=== PATIENT | male | born 1980 | race Hispanic/Latino ===

== ENCOUNTER 2024-05-16 10:24 | Inpatient (IN) | payer BC ==
[2024-05-16] MEDS ORDERED: Ringers Lactate 1,000 ML IV ONE ×2 (10:38→13:09)
[2024-05-16] MEDS ORDERED: CEFAZOLIN SODIUM 2 GM/VIAL ONE (10:38)
[2024-05-16] MEDS ORDERED: MIDAZOLAM HCL 2 MG/2 ML INJ ONE (12:08)
[2024-05-16] MEDS ORDERED: LIDOCAINE 2% MPF 5 ML VIAL ONE (12:08)
[2024-05-16] MEDS ORDERED: ROCURONIUM 50 MG/5 ML VIAL IV ONE ×3 (12:08→15:40)
[2024-05-16] MEDS ORDERED: ONDANSETRON 4 MG/2 ML VIAL ONE (12:08)
[2024-05-16] MEDS ORDERED: FENTANYL CITR 100 MCG/2 ML ONE (12:08)
[2024-05-16] MEDS ORDERED: propofoL 200 MG/20 ML VIAL IV ONE (12:08)
[2024-05-16] MEDS ORDERED: HYDROMORPHONE HCL 1 MG/ML INJ ONE (12:12)
[2024-05-16] MEDS ORDERED: SUGAMMADEX SODIUM 200 MG/2 ML VIAL IV ONE (12:12)
[2024-05-16] MEDS ORDERED: LIDOCAINE HCL/EPINEPHRINE 20 ML MDV ONE (12:14)
[2024-05-16] MEDS ORDERED: dexAMETHasone 10 MG/ML VIAL ONE (13:14)
[2024-05-16] MEDS ORDERED: KETOROLAC 30 MG/ML INJ ONE (14:09)
[2024-05-16] MEDS ORDERED: KETAMINE HCL IN 0.9 % NACL 50 MG/5 ML SYRINGE IV ONE (14:10)
[2024-05-16] MEDS ORDERED: EPHEDRINE SULF 50 MG/ML VIAL ONE (14:46)
--- NOTE | 2024-05-16 16:15 | P.OP ---
Preoperative diagnosis: Recurrent Ventral Incisional Hernia Postoperative diagnosis: Recurrent Ventral Incisional Hernia Primary procedure: Diagnostic Laparoscopy converted to Open Laparotomy Secondary procedure: Small Bowel Resection Other procedure(s): Removal of Foreign Body - Mesh Anesthesia: GETA + Local Estimated blood loss: <100cc Specimen: Small Bowel, Mesh Findings: Small bowel integrated to mesh, mesh malpositioned Complications: None Implants: Seprafilm Transferred to: Recovery Room Condition: Good
[2024-05-16] MEDS: HYDROMORPHONE HCL 1 MG/ML INJ ONE ×3 (16:54→17:11)
[2024-05-16] MEDS: Ringers Lactate 1,000 ML IV ONE (17:00)
[2024-05-16] MEDS: LABETALOL 20 MG/4ML SYRINGE IV ONE (17:11)
--- NOTE | 2024-05-16 17:16 | P.CNS ---
Date of Consult: 05/16/24 Reason for Consult: Hospitalist coverage Requesting Physician: Lucas Gonzalez Chief Complaint: s/p umbilical hernia repair revision today History of Present Illness: Mr. Thompson is a 43-year-old male with a past medical history of obesity and obstructive sleep apnea who had a previous umbilical hernia repair in [place], [place] with recurrent ventral incisional hernias. He underwent open laparotomy with small bowel resection and removal of mesh per Dr. Gonzalez today. The hospitalist team will help keep an eye on patient's H&H and expect discharge in the a.m. - Past Medical/Surgical History -: Obesity -: Umbilical hernia -: Umbilical hernia repair with mesh Psychosocial/ Personal History: Lives at home with his - Social History Place of Residence: Home <Korin Soler - Last Filed: 05/16/24 17:46> - Family History Mother Medical History: Diabetes Brother Medical History: Diabetes <Stan Disla - Last Filed: 05/17/24 10:23> Allergies metronidazole [From Flagyl] Allergy (Verified 05/15/24 10:59) Rash nabumetone [From Relafen] Allergy (Verified 05/15/24 10:59) Rash Home Medications: NK [No Home Meds] 05/17/24 Review of Systems is unable to be obtained (Patient and day surgery recovery area. Continued sedation, will obtain more history when patient is more alert) <Korin Soler - Last Filed: 05/16/24 17:46> Physical Examination Temp Pulse Resp BP Pulse Ox 98.8 F 116 H 18 139/93 H 05/16/24 16:51 05/16/24 16:51 05/16/24 16:51 05/16/24 16:51 General: Obese, Other (Sedated) HEENT: Atraumatic, Normocephalic Neck: Supple Respiratory: Normal air movement Cardiovascular: Regular rate/rhythm, Normal S1 S2, Other (Mild tachycardia) Capillary refill: <2 Seconds Gastrointestinal: Other (Surgical dressings clean dry and intact abdominal binder in place), Tenderness Musculoskeletal: No clubbing Integumentary: No rashes Neurological: Normal tone, Normal affect Lymphatics: No axilla or inguinal lymphadenopathy External genitalia: Deferred Rectal: Deferred <Korin Soler - Last Filed: 05/16/24 17:46> Temp Pulse Resp BP Pulse Ox 97.1 F 90 18 125/75 96 05/17/24 08:00 05/17/24 08:00 05/17/24 08:32 05/17/24 08:00 05/17/24 08:32 Laboratory Data (last 24 hrs) 05/17/24 05/17/24 05/17/24 08:40 05:02 05:02 WBC 14.50 H Hgb 13.4 L 13.4 L Hct 40.4 Plt Count 293 Sodium 139 Potassium 4.1 BUN 12 Creatinine 0.85 Glucose 157 H Phosphorus 2.8 Magnesium 1.7 05/17/24 05/17/24 05/16/24 04:47 02:44 23:02 WBC Hgb Cancelled 13.3 L 14.1 Hct Plt Count Sodium Potassium BUN Creatinine Glucose Phosphorus Magnesium 05/16/24 16:47 WBC Hgb Cancelled Hct Plt Count Sodium Potassium BUN Creatinine Glucose Phosphorus Magnesium <Stan Disla - Last Filed: 05/17/24 10:23> Conclusions/Impression: Open laparotomy for ventral hernia repair and mesh removal Pain control IVF Serial H&H Monitor and replete electrolytes Monitor vital signs I&O Incentive spirometer Cough deep breathe every 2h N.p.o. Teds <Korin Soler - Last Filed: 05/16/24 17:46> Conclusions/Impression: Pt seen and examined. I agree with the note by the RECONCILIATION MACHINE OPERATOR. Pt is a 43 yo male with past medical history of morbid obesity and obstructive sleep apnea who was admitted for observation s/p open laparatomy. Dr. Gonzalez did open laparatomy with small bowel resection and removal of mesh. of note pt had umbilical hernia repair a while ago with recurrent ventral incisional hernia. On admission, lab studies show hgb i wbc 14.2, Hgb 13.2, K 4.1, Cr 0.85. At bedside, pt is in NAD. A/P: S/p Open laparatomy with small bowel resection and removal of mesh: Pt is doing well post-op. Will continue prn pain med. Pt denies any bowel movement. Will start CLD. Hgb is 13.4. Will monitor H/H. ZACK: Continue CPAP at night Morbid obesity: Pt was advised to lose weight. DVT ppx: SCD Code: full <Stan Disla - Last Filed: 05/17/24 10:23>
[2024-05-16] MEDS: Ringers Lactate 1,000 ML IV SCH (18:00)
[2024-05-16] MEDS: FENTANYL CITR 100 MCG/2 ML ONE (18:11)
[2024-05-16] MEDS: ONDANSETRON 4 MG/2 ML VIAL IV PRN (22:23)
[2024-05-16] MEDS: FENTANYL CITR 100 MCG/2 ML IV ONE (22:24)
[2024-05-16] MEDS: ERTAPENEM NA 1 GM in NA CHLORIDE 0.9% 100 ML IVPB ONE (22:32)
[2024-05-16] MEDS: D5.45NS W/KCL 20MEQ 1,000 ML IV SCH (22:32)
[2024-05-16 22:43] VITALS: BMI 43.5
--- NOTE | 2024-05-16 22:54 | OP ---
Date of Procedure: 05/16/2024 Surgeon: Annmarie Gonzalez MD, Preoperative Diagnosis: Recurrent ventral incisional hernias. Postoperative Diagnosis: Recurrent ventral incisional hernias. Procedures Performed: 1.Diagnostic laparoscopy converted to open exploratory laparotomy. 2.Small bowel resection. 3.Removal of mesh foreign body. 4.Laparoscopic adhesiolysis for greater than 2 hours and open adhesiolysis for greater than 1 hour. Anesthesia: General endotracheal plus local, 1% lidocaine with epinephrine. Estimated Blood Loss: 100 cc. Specimens: Small bowel and mesh from previous surgery. Findings: 1.Small bowel had significant adhesions and integration into previously placed mesh near the midline periumbilical region where a previous hernia was appreciated. 2.Mesh was malpositioned, was rolling of the edge, and small bowel adhesions to both aspects of this with multiple loops of small bowel involved. Complications: None. Implants: Seprafilm 2 sheets. Disposition: The patient was transferred to recovery room in good condition. Procedure In Detail: After informed consent was obtained, the patient was brought to the operating r oom, prepped and draped in the usual sterile fashion. After adequate anesthesia was achieved, I made an incision of the left upper quadrant after appropriately anesthetizing the skin. A 5 mm surgical optical trocar was introduced in the abdomen without incident or complication. Insufflation was obta ined to 15 mmHg at this time. There was no injury to vital structures upon entry into the abdomen. Additional trocar was placed in the left lower abdomen. This was similarly anesthetized and sharply incised. A 5 mm trocar was placed under direct visualization without incident or complication. Farshad tional trocar was placed in the left mid abdomen. This was similarly anesthetized, sharply incised. A 5 mm trocar was placed under direct vision without incident or complication. A total of 3 trocars were placed, 12 mm in the left lower quadrant and two 5 mm, 1 in the left mid abdomen and 1 in the l eft upper abdomen. At this point, I proceeded to perform an extensive laparoscopic adhesiolysis for approximately 2 hours attempting to remove small bowel adhesions to the previously placed mesh at the umbilicus. After the adhesiolysis was attempted, it was noted that the small bowel integrated and n ot able to be from the previously placed mesh and as such, I planned a midline mini-laparot lovely incision in the supraumbilical position in a safe zone which was identified after adhesiolysis wa s performed. At this point, I left pneumoperitoneum in place and removed the trocars. I then made a n incision using a 10 blade down to subcutaneous tissues. Electrocautery was used to dissect down to subcutaneous fat ultimately entering the peritoneum sharply with Metzenbaum scissors. I opened the abdomen following down to the previously placed mesh where the integrated small bowel to the mesh was appreciated. I performed extensive adhesiolysis and once again, the small bowel could not be separa annmarie from the mesh and as such, the mesh was removed in its entirety with the segment of small bowel. I secured the small bowel with proximal and distal control to minimize spillage prior to making the resection at this point using a silk suture. I brought the small bowel out and performed a small bow el resection, so I aligned 2 segments of the bowel in a proximal and distal aspect after running the small bowel from the ligament of Treitz to the ileocecal valve and only finding 1 area of significant concern requiring bowel resection. I made a mesenteric window with electrocautery. I then fired th e JOSEPH 60 blue load across the proximal and distal small bowel segments and used the LigaSure to take down the mesentery at this point. I then sent this off for pathologic examination as a small bowel s pecimen. I then aligned the small bowel in a [id number] fashion, secured them using 3-0 silk sutur es in the proximal and distal aspect of the small bowel. I then made a sterile field and performed e nterotomies using electrocautery. I then placed a JOSEPH 60 blue load through the small bowel on the pr oximal and distal limbs and fired the stapler with good approximation of the tissues creating a nice open common channel without bleeding. At this point, I closed the common defect using a Zebulon 3-0 PDS running suture without incident or complication. The common channel was open at this point. I t hen closed the enterotomy with a second layer of Lembert 3-0 silk sutures with good approximation of tissues. I then closed the common mesenteric defect using a 3-0 interrupted Vicryl suture. Everythi ng was changed at this point. The abdomen was copiously irrigated and suctioned out to ami timmons. No additional hemostasis was required at this point. I then ran the small bowel 1 last time. Th ere were only 2 areas of concern further, which had small less than 1 mm areas of inflammatory change consistent with possible serosal injury. As such, I placed a 3-0 Vicryl interrupted suture to reinf orce these 2 spots on the proximal and distal bowel and ran the small bowel once again. No additiona l findings were appreciated at this point. The small bowel was submerged and irrigated once again. No additional hemostasis required. The irrigant was suctioned out at this point. I then placed a pi cassidy of Seprafilm into the abdominal compartment and proceeded to close the 12 mm trocar site using an interrupted #1 Vicryl suture with good approximation of tissues. I then closed the midline incision using a #1 looped PDS in a running fashion and removed the abdominal fissure at the end of the proce dure. I then irrigated the skin and closed with interrupted lito. All skin incisions were then c losed with interrupted lito and a sterile dressing was placed over top. The patient tolerated pro cedure well without incident or complication and transferred back in good condition. All counts were correct at the end of the case. YONI/JEAN MARIE Voice ID: [id number] Report ID: [id number]
[2024-05-16] MEDS: HYDROCODONE/APAP 7.5/325 MG TAB PO PRN (23:13)
[2024-05-17] MEDS: FENTANYL CITR 100 MCG/2 ML IV PRN (02:12)
[2024-05-17 05:27] LABS: Absolute Lymphocytes (CBC) 1.6 K/uL (0.7-4.9); Absolute Monocytes 0.9 K/uL (0.1-1.3); Absolute Neutrophil 11.9 K/uL (1.8-8.0); Basophils % 0.3 % (0-1.3); Hematocrit 40.4 % (39.6-49.0); Hemoglobin 13.4 g/dL (13.6-17.9); Lymphocytes % 11.3 % (15.3-44.8); MCHC 33.2 g/dL (32.0-36.0); MCV 87.3 fL (80-100); MPV 7.6 fL (7.6-11.3); Monocytes % 6.2 % (3.3-12.3); Neutrophils % 82.2 % (41.7-73.7); Nucleated Red Blood Cells % 0.1 % (0-0); Platelets 293 thou/uL (152-406); RBC Red Blood Cell Count 4.63 M/uL (4.33-5.43); Red Cell Distribution Width 14.9 % (12.1-15.2)
[2024-05-17 05:37] LABS: Anion Gap 9.1 mEq/L (5.0-15.0); Magnesium 1.7 mg/dL (1.6-2.4); Phosphorus 2.8 mg/dL (2.5-4.9); Potassium 4.1 mEq/L (3.5-5.1)
[2024-05-17] MEDS: MAGNESIUM SULFATE 1 gm IVPB 1 GM/100 ML BAG IV ONE (08:26)
--- NOTE | 2024-05-17 12:16 | P.PN ---
Subjective Date of Service: 05/17/24 Chief Complaint: s/p umbilical hernia repair revision today Subjective: Improving (Pt will be admitted to hospitalist service. Will consult Dr. Gonzalez) <Korin Soler - Last Filed: 05/17/24 12:16> Date of Service: 05/17/24 <Stan Disla Jad - Last Filed: 05/17/24 17:57> Review of Systems 10-point ROS is otherwise unremarkable Gastrointestinal: Other (using I-S, Abd binder in place) <Korin Soler - Last Filed: 05/17/24 12:16> Physical Examination - Vital Signs Temperature: 97.1 F Blood Pressure: 125/75 Pulse: 90 Respirations: 18 Pulse Ox (%): 96 - Physical Exam General: Alert, In no apparent distress, Oriented x3 HEENT: Atraumatic, Normocephalic Neck: Supple Respiratory: Clear to auscultation bilaterally, Normal air movement Cardiovascular: No edema, Regular rate/rhythm, Normal S1 S2 Capillary refill: <2 Seconds Gastrointestinal: Hypoactive, Tenderness (Generalized) Musculoskeletal: No clubbing Integumentary: No rashes Neurological: Normal speech, Normal tone, Normal affect Lymphatics: No axilla or inguinal lymphadenopathy External genitalia: Deferred Rectal: Deferred - Studies Laboratory Data (last 24 hrs) 05/17/24 05/17/24 05/17/24 08:40 05:02 05:02 WBC 14.50 H Hgb 13.4 L 13.4 L Hct 40.4 Plt Count 293 Sodium 139 Potassium 4.1 BUN 12 Creatinine 0.85 Glucose 157 H Phosphorus 2.8 Magnesium 1.7 05/17/24 05/17/24 05/16/24 04:47 02:44 23:02 WBC Hgb Cancelled 13.3 L 14.1 Hct Plt Count Sodium Potassium BUN Creatinine Glucose Phosphorus Magnesium 05/16/24 16:47 WBC Hgb Cancelled Hct Plt Count Sodium Potassium BUN Creatinine Glucose Phosphorus Magnesium <Korin Soler - Last Filed: 05/17/24 12:16> - Studies Laboratory Data (last 24 hrs) 05/17/24 05/17/24 05/17/24 13:00 08:40 05:02 WBC Hgb 13.6 13.4 L Hct Plt Count Sodium 139 Potassium 4.1 BUN 12 Creatinine 0.85 Glucose 157 H Phosphorus 2.8 Magnesium 1.7 05/17/24 05/17/24 05/17/24 05:02 04:47 02:44 WBC 14.50 H Hgb 13.4 L Cancelled 13.3 L Hct 40.4 Plt Count 293 Sodium Potassium BUN Creatinine Glucose Phosphorus Magnesium 05/16/24 05/16/24 23:02 16:47 WBC Hgb 14.1 Cancelled Hct Plt Count Sodium Potassium BUN Creatinine Glucose Phosphorus Magnesium <Stan Disla - Last Filed: 05/17/24 17:57> Assessment And Plan - Plan Open laparotomy for ventral hernia repair and mesh removal Consult Dr. Gonzalze 05/17/24 POD1 Pain control IVF Serial H&H Monitor and replete electrolytes Monitor vital signs I&O Incentive spirometer Cough deep breathe every 2h N.p.o. advance to slowly ambulate lovenox 40mg sc daily, protonix Teds <Korin Soler - Last Filed: 05/17/24 12:16> - Plan Pt seen and examined. I agree with the note by the CATERER'S AIDE. Hgb is 13.4. Will monitor H/H/ Gen surgeon is following. Pt is NPO. Will continue IVF. <Stan Disla - Last Filed: 05/17/24 17:57>
[2024-05-17] MEDS ORDERED: SODIUM CHLORIDE 0.9% 10ML INJ IV PRN (12:18)
[2024-05-17] MEDS: SIMETHICONE 80 MG CHEWABLE TAB PO SCH (13:00)
[2024-05-17] MEDS: Ringers Lactate 1,000 ML IV SCH (17:44)
[2024-05-17] MEDS: ENOXAPARIN 40 MG/0.4 ML SQ SCH (17:46)
[2024-05-17] MEDS ORDERED: ERTAPENEM SODIUM 1 GM VIAL IVPB SCH (20:00)
[2024-05-17] MEDS: ERTAPENEM NA 1 GM in NA CHLORIDE 0.9% 100 ML IVPB SCH (21:09)
[2024-05-18 06:19] LABS: Absolute Basophils 0.1 K/uL (0-0.5); Absolute Eosinophils 0.1 K/uL (0-0.5); Absolute Lymphocytes (CBC) 2.5 K/uL (0.7-4.9); Absolute Monocytes 0.7 K/uL (0.1-1.3); Absolute Neutrophil 6.6 K/uL (1.8-8.0); Basophils % 0.8 % (0-1.3); Hematocrit 40.4 % (39.6-49.0); Hemoglobin 13.5 g/dL (13.6-17.9); Lymphocytes % 24.7 % (15.3-44.8); MCH 29.4 pg (27.0-35.0); MCHC 33.4 g/dL (32.0-36.0); MCV 88.1 fL (80-100); Monocytes % 6.8 % (3.3-12.3); Neutrophils % 66.7 % (41.7-73.7); Nucleated Red Blood Cells % 0.1 % (0-0); Platelets 277 thou/uL (152-406); RBC Red Blood Cell Count 4.59 M/uL (4.33-5.43); Red Cell Distribution Width 14.6 % (12.1-15.2)
[2024-05-18 06:30] LABS: Anion Gap 10.7 mEq/L (5.0-15.0); Magnesium 2.3 mg/dL (1.6-2.4); Phosphorus 2.4 mg/dL (2.5-4.9); Potassium 3.7 mEq/L (3.5-5.1)
[2024-05-18] MEDS: PANTOPRAZOLE 40 MG INJ IVP SCH (08:14)
--- NOTE | 2024-05-18 09:37 | P.PN ---
Subjective Date of Service: 05/18/24 Chief Complaint: s/p umbilical hernia repair revision today Subjective: Improving (+ flatus, + ambulation, I-S, maintaining abd binder) <Korin Soler - Last Filed: 05/18/24 09:33> Date of Service: 05/18/24 <Stan Disla - Last Filed: 05/18/24 10:30> Review of Systems no c/o <Korin Soler - Last Filed: 05/18/24 09:33> Physical Examination - Vital Signs Temperature: 97.3 F Blood Pressure: 139/80 Pulse: 105 Respirations: 18 Pulse Ox (%): 91 - Physical Exam General: Alert, In no apparent distress, Oriented x3 HEENT: Atraumatic, Normocephalic Neck: Supple Respiratory: Normal air movement Cardiovascular: Normal pulses, Regular rate/rhythm Capillary refill: <2 Seconds Gastrointestinal: Hypoactive, Tenderness (Mild) Musculoskeletal: No clubbing Integumentary: No rashes Neurological: Normal gait, Normal speech, Normal tone, Normal affect Lymphatics: No axilla or inguinal lymphadenopathy External genitalia: Deferred Rectal: Deferred - Studies Laboratory Data (last 24 hrs) 05/18/24 05/18/24 05/17/24 05:35 05:35 13:00 WBC 9.90 Hgb 13.5 L 13.6 Hct 40.4 Plt Count 277 Sodium 138 Potassium 3.7 BUN 10 Creatinine 0.66 L Glucose 115 H Phosphorus 2.4 L Magnesium 2.3 <Korin Soler - Last Filed: 05/18/24 09:33> - Studies Laboratory Data (last 24 hrs) 05/18/24 05/18/24 05/17/24 05:35 05:35 13:00 WBC 9.90 Hgb 13.5 L 13.6 Hct 40.4 Plt Count 277 Sodium 138 Potassium 3.7 BUN 10 Creatinine 0.66 L Glucose 115 H Phosphorus 2.4 L Magnesium 2.3 <Stan Disla - Last Filed: 05/18/24 10:30> Assessment And Plan - Plan Open laparotomy for ventral hernia repair and mesh removal Consult Dr. Gonzalez 05/17/24 POD2 Pain control IVF Serial H&H Monitor and replete electrolytes, electrolytes within normal limits 05/18/24 Monitor vital signs, hemodynamically stable I&O, taking p.o. fluid without difficulty, no nausea/vomiting Incentive spirometer -participating well Cough deep breathe every 2h N.p.o. advance to slowly ambulate, made several laps in the hallway yesterday on postop day 1 05/17/2024 lovenox 40mg sc daily, protonix Teds Discharge Plan: Home Plan to discharge in: 48 Hours - Code Status/Comfort Care Code Status Assessed: Yes (Full) Time Spent Managing PTS Care (In Minutes): 22 <Korin Soler - Last Filed: 05/18/24 09:33> - Plan Pt seen and examined. I agree with the note by the ANALYTICS LEADER. S/P open laparatomy for ventral hernia repair and mesh removal, POD #2. Hgb is 13.5. Will monitor H/H/ Gen surgeon is following. Pt is tolerating Jello. Will continue IVF. <Stan Disla - Last Filed: 05/18/24 10:30>
--- NOTE | 2024-05-18 09:43 | P.HP ---
Certification for Inpatient Patient admitted to: Inpatient With expected LOS: >2 Midnights <Swetha Solery Ghanshyam - Last Filed: 05/18/24 09:37> Patient History Date of Service: 05/16/24 Reason for admission: s/p umbilical hernia repair revision today History of Present Illness: Mr. Thompson is a 43-year-old male with a past medical history of obesity and obstructive sleep apnea who had a previous umbilical hernia repair in [place], [place] with recurrent ventral incisional hernias. He underwent open laparotomy with small bowel resection and removal of mesh per Dr. Gonzalez today. The hospitalist team will medically manage Mr. Thompson post-op with consultation to Dr. Gonzalez Home medications list reviewed: Yes - Past Medical/Surgical History Has patient received pneumonia vaccine in the past: No Diabetic: No -: Obesity -: Umbilical hernia -: Umbilical hernia repair with mesh Psychosocial/ Personal History: Lives at home with his and Daughter - Family History Mother -: Diabetes Brother -: Diabetes - Social History Smoking Status: Former smoker Alcohol use: Yes CD- Drugs: No Caffeine use: Yes Place of Residence: Home <Swetha Solershanelle Morrissey - Last Filed: 05/18/24 09:37> Date of Service: 05/18/24 <Stan Disla - Last Filed: 05/18/24 21:50> Allergies metronidazole [From Flagyl] Allergy (Verified 05/15/24 10:59) Rash nabumetone [From Relafen] Allergy (Verified 05/15/24 10:59) Rash Home Medications: NK [No Home Meds] 05/17/24 Review of Systems 10-point ROS is otherwise unremarkable Gastrointestinal: As per HPI <SolerKorin - Last Filed: 05/18/24 09:37> Physical Examination - Vital Signs Temperature: 97.3 F Blood Pressure: 139/80 Pulse: 105 Respirations: 18 Pulse Ox (%): 91 - Physical Exam General: Other (Mildly sedated status post surgical procedure) HEENT: Atraumatic, Normocephalic Neck: Supple Respiratory: Clear to auscultation bilaterally, Normal air movement Cardiovascular: No edema, Normal pulses, Regular rate/rhythm Capillary refill: <2 Seconds Gastrointestinal: Other (Postop dressings x 3 with abdominal binder) Musculoskeletal: No clubbing, Other (Teds to bilateral lower extremities) Integumentary: No rashes, No breakdown Neurological: Other (Sedated), Abnormal affect Lymphatics: No axilla or inguinal lymphadenopathy External genitalia: Deferred Rectal: Deferred - Studies Laboratory Data (last 24 hrs) 05/18/24 05/18/24 05/17/24 05:35 05:35 13:00 WBC 9.90 Hgb 13.5 L 13.6 Hct 40.4 Plt Count 277 Sodium 138 Potassium 3.7 BUN 10 Creatinine 0.66 L Glucose 115 H Phosphorus 2.4 L Magnesium 2.3 <Korin Soler - Last Filed: 05/18/24 09:37> - Studies Laboratory Data (last 24 hrs) 05/18/24 05/18/24 05:35 05:35 WBC 9.90 Hgb 13.5 L Hct 40.4 Plt Count 277 Sodium 138 Potassium 3.7 BUN 10 Creatinine 0.66 L Glucose 115 H Phosphorus 2.4 L Magnesium 2.3 <Stan Disla C - Last Filed: 05/18/24 21:50> Assessment and Plan - Plan Open laparotomy for ventral hernia repair and mesh removal Consult Dr. Gonzalez Pain control IVF Serial H&H Monitor and replete electrolytes Monitor vital signs I&O Incentive spirometer Cough deep breathe every 2h N.p.o. advance to CL slowly ambulate protonix Teds - Advance Directives Does patient have a Living Will: No Does patient have a Durable POA for Healthcare: No <Korin Soler - Last Filed: 05/18/24 09:37> - Plan Pt seen and examined. I agree with the note by the REAL ESTATE LEASING MANAGER. Pt is feeling better. He is passing gas. No BM. Continue clear liquid diet. Gen surgon is following. <Stan Disla - Last Filed: 05/18/24 21:50>
[2024-05-18] MEDS: POTASSIUM 25 MEQ EFFERV TAB PO ONE (09:50)
[2024-05-19 05:36] LABS: Absolute Basophils 0.1 K/uL (0-0.5); Absolute Eosinophils 0.4 K/uL (0-0.5); Absolute Lymphocytes (CBC) 2.4 K/uL (0.7-4.9); Absolute Monocytes 0.6 K/uL (0.1-1.3); Absolute Neutrophil 6.1 K/uL (1.8-8.0); Basophils % 1.3 % (0-1.3); Eosinophils % 4.2 % (0-4.4); Hematocrit 40.3 % (39.6-49.0); Hemoglobin 13.5 g/dL (13.6-17.9); MCH 29.3 pg (27.0-35.0); MCHC 33.6 g/dL (32.0-36.0); MCV 87.2 fL (80-100); MPV 7.5 fL (7.6-11.3); Monocytes % 6.2 % (3.3-12.3); Neutrophils % 63.3 % (41.7-73.7); Nucleated Red Blood Cells % 0.2 % (0-0); Platelets 295 thou/uL (152-406); RBC Red Blood Cell Count 4.62 M/uL (4.33-5.43); Red Cell Distribution Width 14.3 % (12.1-15.2)
[2024-05-19 05:51] LABS: Anion Gap 11.6 mEq/L (5.0-15.0); Magnesium 2.1 mg/dL (1.6-2.4); Phosphorus 3.6 mg/dL (2.5-4.9); Potassium 3.6 mEq/L (3.5-5.1)
[2024-05-19 09:02] VITALS: O2SAT 93
--- NOTE | 2024-05-19 10:36 | P.PN ---
Date of Service: 05/19/24 Subjective Awake and feeling well, pain well controlled Reports having BMs and tolerating PO diet ROS 10 point ROS as noted above, otherwise negative Physical Exam General: Alert and Oriented x3, NAD HEENT: Atraumatic, Normocephalic Neck: Supple, trachea midline Respiratory: Symmetric chest wall movement, nonlabored breathing, on room air Cardiovascular: Normal pulses, RRR, S1 S2 present Capillary refill: <2 Seconds Gastrointestinal: positive bowel sounds Tenderness (Mild) Musculoskeletal: No clubbing, 2+ peripheral pulses Integumentary: No rashes Neurological: Normal gait, Normal speech, Normal tone, Normal affect Vitals Reviewed Problem list Open laparotomy for ventral hernia repair and mesh removal History of ZACK Morbid Obesity Assessment and Plan Open laparotomy for ventral hernia repair and mesh removal Consult Dr. Gonzalez 05/17/24 POD3 Pain control IVF Serial H&H Monitor and replete electrolytes, electrolytes within normal limits 05/18/24 Monitor vital signs, hemodynamically stable I&O, taking p.o. fluid without difficulty, no nausea/vomiting Incentive spirometer -participating well Cough deep breathe every 2h CLD advanced to soft bite sized ambulate, made several laps in the hallway yesterday on postop day 1 05/17/2024 lovenox 40mg sc daily, protonix Teds History of ZACK -supportive care -continue home medications Morbid Obesity -BMI 43.6 -nutrition education provided Discharge Plan: Home Plan to discharge in: 48 Hours <Yohana Alvarado - Last Filed: 05/19/24 10:36> Pt seen and examined. I agree with the note by the OPEN WINDER. S/P open laparatomy for ventral hernia repair and mesh removal, POD #3. Hgb is 13.5. Will monitor H/H/ Gen surgeon is following. Pt is tolerating clear liquid diet. Pt has 2 BMS and he is passing gas. Will advance diet to mechanical soft diet. Will if he keeps his mechanical soft diet down. <Stan Disla - Last Filed: 05/19/24 12:14>
--- NOTE | 2024-05-19 12:25 | P.DS ---
Admission Date: 05/16/24 Discharge Date: 05/19/24 Disposition: ROUTINE DISCHARGE Discharge Condition: GOOD Reason for Admission: s/p umbilical hernia repair revision today Brief History of Present Illness: Mr. Thompson is a 43-year-old male with a past medical history of obesity and obstructive sleep apnea who had a previous umbilical hernia repair in [place], [place] with recurrent ventral incisional hernias. He underwent open laparotomy with small bowel resection and removal of mesh per Dr. Gonzalez today. The hospitalist team will medically manage Mr. Thompson post-op with consultation to Dr. Gonzalez Hospital Course: Pt is a 43yo male with past medical history of morbid obesity and obstructive sleep apnea who had a previous umbilical hernia repair in [place], [place] with recurrent ventral incisional hernias. He underwent open laparotomy with small bowel resection and removal of mesh per Dr. Gonzalez on 05/17/24. The hospitalist team was called to admit pt for medical management. Pt did well post-op. We gave prn pain med and started Jello the next day. Pt tolerated clear liquid diet and we advanced diet to mechanical soft diet which pt tolerated well before we discharged him with prn norco. Gen surgeon cleared him for discharge. Pt was advised to keep the dressing dry and follow up with Dr. Gonzalez. He was in NAD prior to discharge. Vital Signs/Physical Exam: Temp Pulse Resp BP Pulse Ox 97.9 F 98 H 16 140/79 93 05/19/24 08:00 05/19/24 08:00 05/19/24 10:28 05/19/24 08:00 05/19/24 08:00 Laboratory Data at Discharge: WBC 9.60 thou/uL (4.3-10.9) 05/19/24 05:10 Hgb 13.5 g/dL (13.6-17.9) L 05/19/24 05:10 Hct 40.3 % (39.6-49.0) 05/19/24 05:10 Plt Count 295 thou/uL (152-406) 05/19/24 05:10 Sodium 138 mEq/L (136-145) 05/19/24 05:10 Potassium 3.6 mEq/L (3.5-5.1) 05/19/24 05:10 BUN 11 mg/dL (7-18) 05/19/24 05:10 Creatinine 0.55 mg/dL (0.70-1.30) L 05/19/24 05:10 Glucose 107 mg/dL (74-106) H 05/19/24 05:10 Phosphorus 3.6 mg/dL (2.5-4.9) 05/19/24 05:10 Magnesium 2.1 mg/dL (1.6-2.4) 05/19/24 05:10 Home Medications: Hydrocodone 5/APAP 325 [[place] 5/325] 1 tab PO Q6H PRN 7 Days #30 tab 05/19/24 New Medications: Hydrocodone 5/APAP 325 [[place] 5/325] 1 tab PO Q6H PRN 7 Days #30 tab PRN Reason: Pain Physician Discharge Instructions: Continue ad allen activity. Take prn norco as prescribed. Follow up with PCP and Dr. Gonzalez within 1 - 2 weeks. Diet: AHA Activity: Ad allen Followup: Clive Brown MD [Primary Care Provider] -
[2024-05-19 12:26] VITALS: BP 139/78; TEMP 98.7
== END 2024-05-19 14:03 | disposition home or self-care (01) | DRG 330 ==
LOC: OR 10:24 → 2ND 17:22
PROVIDERS: ADMIT Hospitalist; ATTEND Hospitalist
PROC: 0WPF0JZ Removal of Synthetic Substitute from Abdominal Wall, Open Approach (ICD-10-PCS; 2024-05-16)
PROC: 0DN80ZZ Release Small Intestine, Open Approach (ICD-10-PCS; 2024-05-16)
PROC: 0DB80ZZ Excision of Small Intestine, Open Approach (ICD-10-PCS; principal; 2024-05-16 11:45)
DX: K43.2 Incisional hernia without obstruction or gangrene (principal); Z68.41 Body mass index [BMI] 40.0-44.9, adult; E66.01 Morbid (severe) obesity due to excess calories; G47.33 Obstructive sleep apnea (adult) (pediatric); Z88.8 Allergy status to other drugs, medicaments and biological substances; Z53.31 Laparoscopic surgical procedure converted to open procedure
CPT/HCPCS: 36415; 80048; 82947; 83735; 84100; 85018; 85025; 86850; 86900; 86901; 88305; 88307; 94010; 94760; J1100; J1170; J1335; J1650; J2001; J2250; J2405; J2470; J2704; J3010; J3475; J7120

== ENCOUNTER 2024-10-28 19:01 | Emergency (ER) | payer BC ==
[2024-10-28] MEDS ORDERED: ONDANSETRON 4 MG/2 ML VIAL ONE (22:26)
[2024-10-28] MEDS ORDERED: NA CHLORIDE 0.9% 1,000 ML ONE (22:26)
[2024-10-28 22:58] LABS: Absolute Basophils 0.1 K/uL (0-0.5); Absolute Eosinophils 0.1 K/uL (0-0.5); Absolute Monocytes 0.6 K/uL (0.1-1.3); Absolute Neutrophil 8.3 K/uL (1.8-8.0); Basophils % 0.9 % (0-1.3); Eosinophils % 0.8 % (0-4.4); Hematocrit 43.4 % (39.6-49.0); Hemoglobin 14.5 g/dL (13.6-17.9); Lymphocytes % 24.7 % (15.3-44.8); MCH 28.6 pg (27.0-35.0); MCHC 33.4 g/dL (32.0-36.0); MCV 85.6 fL (80-100); MPV 7.5 fL (7.6-11.3); Monocytes % 5.4 % (3.3-12.3); Neutrophils % 68.2 % (41.7-73.7); Nucleated Red Blood Cells % 0.1 % (0-0); Platelets 307 thou/uL (152-406); RBC Red Blood Cell Count 5.07 M/uL (4.33-5.43); Red Cell Distribution Width 14.7 % (12.1-15.2)
[2024-10-28 23:18] LABS: Albumin/Globulin Ratio 0.8 (1.1-1.8); Anion Gap 10.4 mEq/L (5.0-15.0); Bilirubin Total 0.5 mg/dL (0.2-1.0); Globulin 3.7 g/dL (2.3-3.5); Potassium 3.4 mEq/L (3.5-5.1); Protein, Total 6.7 g/dL (6.4-8.2)
--- NOTE | 2024-10-29 00:11 | EDPHYS ---
Physician Documentation [facility] Name: Angel Thompson Age: 44 yrs Sex: Male : 1980 Arrival Date: 10/28/2024 Time: 19:01 Bed 5 Private MD: ED Physician Matheus Winters HPI: 10/28 19:48 This 44 yrs old Male presents to ER via Unassigned with complaints of kb Abdominal Pain, Vomiting. 19:48 Pt is a 44 year old male who presents for pain to [facility] with vomiting that kb started today. Denies fever, diarrhea. Last BM this morning. States he had a hernia repair in May and believes he has a blockage in that spot. . Historical: - Allergies: 19:53 Flagyl; iw 19:53 Relafen; iw - PSHx: 19:53 hernia; iw - Immunization history:: Adult Immunizations not up to date. - Infectious Disease History:: Denies. - Social history:: Smoking status: Patient denies any tobacco usage or history of. ROS: 19:50 Constitutional: As per HPI kb Exam: 19:50 Constitutional: This is a well developed, well nourished patient who is awake, alert, kb and in no acute distress. Head/Face: Normocephalic, atraumatic. ENT: Moist Mucous membranes Cardiovascular: Regular rate Respiratory: Respirations even and unlabored. No increased work of breathing. Talking in full sentences Skin: Warm, dry with normal turgor. Normal color. MS/ Extremity: Pulses equal, no cyanosis. Neurovascular intact. Full, normal range of motion. Neuro: Awake and alert, GCS 15, oriented to person, place, time, and situation. 19:50 Abdomen/GI: Inspection: abdomen appears normal, Bowel sounds: normal, Palpation: soft, in all quadrants, mild abdominal tenderness, in the umbilical area, right upper quadrant and left upper quadrant, Vital Signs: 19:52 BP 132 / 79; Pulse 97; Resp 18; Temp 96.9; Pulse Ox 97% on R/A; Weight 122.47 kg; iw Height 5 ft. 6 in. ; Pain 8/10; 22:30 BP 117 / 76; Pulse 83; Resp 17 S; Pulse Ox 100% on R/A; ha1 23:20 BP 119 / 81; Pulse 80; Resp 17 S; Temp 97.4; Pulse Ox 96% on R/A; ha1 19:52 Body Mass Index 43.58 (122.47 kg, 167.64 cm) iw 19:52 Pain Scale: Adult iw MDM: 19:39 Medical Screening Exam initiated kb 10/29 00:09 Differential diagnosis: bowel obstruction, diverticulitis, non-specific abd pain. Data kb reviewed: vital signs, nurses notes. Consideration of Admission/Observation Escalation of care including admission/observation considered. admission considered and discussed with pt. Pt is nontoxic in appearance, tolerating po intake and prefers to do outpatient antibiotics. Will return for worsening symptoms. . Counseling: I had a detailed discussion with the patient and/or guardian regarding the historical points, exam findings, and any diagnostic results supporting the discharge/admit diagnosis, lab results, radiology results, the need for outpatient follow up, a family practitioner, to return to the emergency department if symptoms worsen or persist or if there are any questions or concerns that arise at home. 10/28 19:51 Order name: CBC with Diff; Complete Time: 23:00 kb 10/28 19:51 Order name: CMP; Complete Time: 23:25 kb 10/28 19:51 Order name: Lipase; Complete Time: 23:25 kb 10/28 19:51 Order name: CT Abd/Pelvis - IV Contrast Only 10/28 19:51 Order name: IV Saline Lock; Complete Time: 22:53 kb 10/28 19:51 Order name: Labs collected and sent; Complete Time: 22:53 kb Administered Medications: 10/28 22:53 Drug: NS 0.9% IV 1000 ml IV at 1 bolus Per protocol; to be given as a bolus over 60 ha1 minutes Route: IV; Rate: 1 bolus; Site: right antecubital; 10/29 00:14 Follow up: Response: No adverse reaction; IV Status: Completed infusion; IV Intake: ha1 1000ml 10/28 22:54 Drug: Ondansetron IVP 4 mg IVP once; over 2 minutes Route: IVP; Site: right antecubital;ha1 23:30 Follow up: Response: No adverse reaction; Marked relief of symptoms; Nausea is decreased1 10/29 00:39 Drug: Amoxicillin-Clavulanate PO 875 mg PO once Route: PO; ha1 00:52 Follow up: Response: No adverse reaction ha1 Disposition: 12:12 Co-signature as Attending Physician, Matheus Winters MD I reviewed the patient's care rt provided by the Advanced Practice Provider and agree with the diagnosis and treatment plan. Disposition Summary: 10/29/24 00:11 Discharge Ordered Notes: Location: Home kb Condition: Stable kb Diagnosis - Diverticulitis of intestine, part unspecified, without perforation or abscess kb without bleeding Followup: kb - With: Emergency Department - When: As needed - Reason: Worsening of condition Followup: kb - With: Private Physician - When: 2 - 3 days - Reason: Recheck today's complaints, Continuance of care, Re-evaluation by your physician Discharge Instructions: - Discharge Summary Sheet kb - Diverticulitis, [id number] kb Forms: - Medication Reconciliation Form kb - Antibiotic Education kb - Prescription Opioid Use kb - Patient Portal Instructions kb - Leadership Thank You Letter kb Prescriptions: - Augmentin 875-125 mg Oral Tablet - take 1 tablet ORAL route every 12 hours for 10 days; 20 tablet; Refills: 0, kb Product Selection Permitted - Tramadol 50 mg Oral Tablet - take 1 tablet ORAL route every 8 hours as needed; 12 tablet; Refills: 0, kb Product Selection Permitted Signatures: Dispatcher [employer] Blanca Tan, MELANIE-C PACS SPECIALIST-Lata Cook, JOVANA WHALEY iw Jennifer Vann RN RN ha1 Matheus Winters MD MD rt
--- NOTE | 2024-10-29 00:11 | ER ---
Nurse's Notes [facility] Name: Angel Thompson Age: 44 yrs Sex: Male : 1980 Arrival Date: 10/28/2024 Time: 19:01 Bed 5 Private MD: Diagnosis: Diverticulitis of intestine, part unspecified, without perforation or abscess without bleeding Presentation: 10/28 19:52 Chief complaint: Patient states: mid abd pain today, hernia repair inn sept. iw Coronavirus screen: At this time, the client does not indicate any symptoms associated with coronavirus-19. Ebola Screen: No symptoms or risks identified at this time. Initial Sepsis Screen: Does the patient meet any 2 criteria? No. Patient's initial sepsis screen is negative. Does the patient have a suspected source of infection? No. Patient's initial sepsis screen is negative. Risk Assessment: Do you want to hurt yourself or someone else? Patient reports no desire to harm self or others. Onset of symptoms was October 28, 2024. 19:52 Method Of Arrival: Ambulatory iw 19:52 Acuity: JESSICA 3 iw Historical: - Allergies: 19:53 Flagyl; iw 19:53 Relafen; iw - PSHx: 19:53 hernia; iw - Immunization history:: Adult Immunizations not up to date. - Infectious Disease History:: Denies. - Social history:: Smoking status: Patient denies any tobacco usage or history of. Screenin:57 [facility] ED Fall Risk Assessment (Adult) History of falling in the last 3 months, ha1 including since admission No falls in past 3 months (0 pts) Confusion or Disorientation No (0 pts) Intoxicated or Sedated No (0 pts) Impaired Gait No (0 pts) Mobility Assist Device Used No (0 pt) Altered Elimination No (0 pt) Score/Fall Risk Level 0 - 2 = Low Risk Oriented to surroundings, Maintained a safe environment, Educated pt \T\ family on fall prevention, incl call for assistance when getting out of bed, Hourly rounding (assess needs \T\ fall precautionary measures) done. Abuse screen: Denies threats or abuse. Denies injuries from another. Nutritional screening: No deficits noted. Tuberculosis screening: No symptoms or risk factors identified. Assessment: 22:30 General: Appears uncomfortable, Behavior is calm, cooperative. Pain: Complains of pain ha1 in umbilical area Pain does not radiate. Pain currently is 7 out of 10 on a pain scale. Quality of pain is described as crampy, Pain began gradually. Neuro: Level of Consciousness is awake, alert, obeys commands, Oriented to person, place, time, situation. Cardiovascular: Capillary refill < 3 seconds Patient's skin is warm and dry. Respiratory: Airway is patent Respiratory effort is even, unlabored, Respiratory pattern is regular, symmetrical. GI: Abdomen is round obese, Bowel sounds present X 4 quads. Abd is soft X 4 quads Abdomen is tender to palpation in umbilical area. GI: Reports lower abdominal pain, nausea, vomiting. : No signs and/or symptoms were reported regarding the genitourinary system. Derm: Skin is pink, warm \T\ dry. Musculoskeletal: Circulation, motion, and sensation intact. Range of motion: intact in all extremities. 23:15 Reassessment: Patient and/or family updated on plan of care and expected duration. Pain ha1 level reassessed. Patient is alert, oriented x 3, equal unlabored respirations, skin warm/dry/pink. Patient states feeling better. Patient states symptoms have improved. Vital Signs: 19:52 BP 132 / 79; Pulse 97; Resp 18; Temp 96.9; Pulse Ox 97% on R/A; Weight 122.47 kg; iw Height 5 ft. 6 in. ; Pain 8/10; 22:30 BP 117 / 76; Pulse 83; Resp 17 S; Pulse Ox 100% on R/A; ha1 23:20 BP 119 / 81; Pulse 80; Resp 17 S; Temp 97.4; Pulse Ox 96% on R/A; ha1 19:52 Body Mass Index 43.58 (122.47 kg, 167.64 cm) iw 19:52 Pain Scale: Adult iw ED Course: 19:05 Patient arrived in ED. gm2 19:39 Blanca Garcia FNP-C [facility] kb 19:39 Matheus Winters MD is Attending Physician. kb 19:53 Triage completed. iw 19:54 Arm band placed on. iw 20:11 Radiology exam delayed due to lab results not completed at this time. IV insertion jc4 attempt and/or patient not having appropriate IV at this time. 22:10 Patient has correct armband on for positive identification. Bed in low position. Call ha1 light in reach. Side rails up X 1. 22:30 Inserted saline lock: 20 gauge in right antecubital area, using aseptic technique. ha1 Blood collected. Flushed with 10 mL NS. 22:38 Radiology exam delayed due to IV insertion attempt and/or patient not having nj appropriate IV at this time. 22:54 CBC with Diff Sent. ha1 22:54 CMP Sent. ha1 22:54 Lipase Sent. ha1 22:59 Jennifer Vann, RN is Primary Nurse. ha1 22:59 Provided Education on: medication administration and plan of care . ha1 23:49 CT Abd/Pelvis - IV Contrast Only In Process Unspecified. EDMS 10/29 00:52 No provider procedures requiring assistance completed. IV discontinued, intact, ha1 bleeding controlled, No redness/swelling at site. Pressure dressing applied. Administered Medications: 10/28 22:53 Drug: NS 0.9% IV 1000 ml IV at 1 bolus Per protocol; to be given as a bolus over 60 ha1 minutes Route: IV; Rate: 1 bolus; Site: right antecubital; 10/29 00:14 Follow up: Response: No adverse reaction; IV Status: Completed infusion; IV Intake: ha1 1000ml 10/28 22:54 Drug: Ondansetron IVP 4 mg IVP once; over 2 minutes Route: IVP; Site: right antecubital;ha1 23:30 Follow up: Response: No adverse reaction; Marked relief of symptoms; Nausea is decreasedha1 10/29 00:39 Drug: Amoxicillin-Clavulanate PO 875 mg PO once Route: PO; ha1 00:52 Follow up: Response: No adverse reaction ha1 Medication: 10/28 22:57 VIS not applicable for this client. ha1 Intake: 10/29 00:14 IV: 1000ml; Total: 1000ml. ha1 Outcome: 00:11 Discharge ordered by MD. ram 00:53 Discharged to home ambulatory, with significant other, ha1 00:53 Condition: stable 00:53 Discharge instructions given to patient, Instructed on discharge instructions, follow up and referral plans. medication usage, Demonstrated understanding of instructions, follow-up care, medications, Prescriptions given X 2, 00:53 Patient left the ED. ha1 Signatures: Dispatcher [employer] EDAZ Blanca Garcia, PUBLIC SAFETY DISPATCHER-C PUBLIC SAFETY DISPATCHER-Ckb Lata Christianson, RN RN iw Donaldo Hawthorne Heidy, RN RN ha1 Ava Kiser 2 Hang Mcgee jc4 Corrections: (The following items were deleted from the chart) 10/28 22:54 22:53 NS 0.9% IV 1000 ml IV at 1 bolus in left antecubital ha1 ha1 10/29 00:14 10/28 23:20 BP 119 / 81; Pulse 80bpm; Resp 17bpm; Spontaneous; Pulse Ox 96% RA; ha1 ha1
[2024-10-29] MEDS ORDERED: AMOX/K CLAV 875 MG TAB ONE (00:23)
--- NOTE | 2024-10-29 00:46 | RAD REPORT ---
CT Abdomen and Pelvis With Intravenous Contrast CLINICAL INDICATION: The patient is 44 years old and is Male; ABD PAIN TECHNIQUE: Axial computed tomography images of the abdomen and pelvis with intravenous contrast. Sagittal and coronal reformatted images were created and reviewed. This CT exam was performed using one or more of the following dose reduction techniques: automated exposure control, adjustment of the mA a nd/or kV according to patient size, and/or use of iterative reconstruction technique. DLP: 1616 mGy*cm COMPARISON: None. FINDINGS: LUNG BASES: Unremarkable. No mass. No consolidation. ABDOMEN: LIVER: Unremarkable. No mass. GALLBLADDER AND BILE DUCTS: Unremarkable. No calcified stones. No ductal dilation. PANCREAS: Unremarkable. No mass. No ductal dilation. SPLEEN: Unremarkable. No splenomegaly. ADRENALS: Unremarkable. No mass. KIDNEYS AND URETERS: Unremarkable. No solid mass. No hydronephrosis. STOMACH AND BOWEL: Bowel containing supraumbilical and periumbilical hernias. Prior small bowel pos tsurgical changes. No obstruction. Sigmoid diverticulosis. Mild pericolonic stranding. Mild wall thickening. PELVIS: APPENDIX: The appendix is seen and is within normal limits. BLADDER: Unremarkable. No mass. REPRODUCTIVE: Unremarkable as visualized. ABDOMEN and PELVIS: INTRAPERITONEAL SPACE: Unremarkable. No free air. No significant fluid collection. BONES/JOINTS: No acute fracture. No dislocation. SOFT TISSUES: See above. VASCULATURE: Unremarkable. No abdominal aortic aneurysm. LYMPH NODES: Unremarkable. No enlarged lymph nodes. IMPRESSION: 1. Findings suggestive of mild acute sigmoid diverticulitis or epiploic appendagitis. No perforatio n or abscess formation. 2. Bowel containing supraumbilical and periumbilical hernias. Prior small bowel postsurgical change s. No obstruction. Electronically signed by: Hong Dodd DO 10/29/2024 12:02 AM [facility] 9 Due to temporary technical issues with the PACS/WISHI reporting system, reports are being vijay d by the in-house radiologist without review as a courtesy to ensure prompt reporting the interpreting radiologist is fully responsible for the content of the report. Transcribed Date/Time: 10/29/2024 12:46 AM
[2024-10-29 01:18] VITALS: BP 119/81; TEMP 97.4; O2SAT 96
== END 2024-10-29 00:53 | disposition home or self-care (01) ==
LOC: ER 19:01
DX: K57.32 Diverticulitis of large intestine without perforation or abscess without bleeding (principal)
CPT/HCPCS: 85025; 36415; 83690; 80053; 74177; Q9967; J2405; J7030; 96361; 96374; 99284

== ENCOUNTER 2024-11-11 23:20 | Emergency (ER) | payer BC ==
[2024-11-12] MEDS ORDERED: ONDANSETRON 4 MG/2 ML VIAL ONE (00:20)
[2024-11-12] MEDS ORDERED: KETOROLAC 30 MG/ML INJ ONE (00:20)
[2024-11-12] MEDS ORDERED: NA CHLORIDE 0.9% 1,000 ML ONE (00:21)
[2024-11-12] MEDS ORDERED: MORPHINE 4 MG/ML SYR ONE (00:21)
[2024-11-12 00:48] LABS: Absolute Basophils 0.2 K/uL (0-0.5); Absolute Eosinophils 0.3 K/uL (0-0.5); Absolute Lymphocytes (CBC) 3.7 K/uL (0.7-4.9); Absolute Monocytes 0.7 K/uL (0.1-1.3); Absolute Neutrophil 5.9 K/uL (1.8-8.0); Basophils % 1.8 % (0-1.3); Eosinophils % 3.2 % (0-4.4); Hematocrit 43.2 % (39.6-49.0); Hemoglobin 14.5 g/dL (13.6-17.9); Lymphocytes % 34.1 % (15.3-44.8); MCHC 33.5 g/dL (32.0-36.0); MCV 86.4 fL (80-100); MPV 7.5 fL (7.6-11.3); Monocytes % 6.4 % (3.3-12.3); Neutrophils % 54.5 % (41.7-73.7); Nucleated Red Blood Cells % 0.1 % (0-0); Platelets 328 thou/uL (152-406); Red Cell Distribution Width 14.4 % (12.1-15.2)
[2024-11-12 01:03] LABS: ALT/SGPT 40 U/L (16-61); Albumin 2.9 g/dL (3.4-5.0); Albumin/Globulin Ratio 0.8 (1.1-1.8); Alkaline Phosphatase 114 U/L (45-117); Anion Gap 7.5 mEq/L (5.0-15.0); BUN Blood Urea Nitrogen 16 mg/dL (7-18); Bicarbonate 28 mEq/L (21-32); Bilirubin Total 0.2 mg/dL (0.2-1.0); Globulin 3.8 g/dL (2.3-3.5); Glomerular Filtration Rate 113 ml/min (=/>90); Glucose Level 130 mg/dL (74-106); Lipase 32 U/L (13-75); Protein, Total 6.7 g/dL (6.4-8.2); Sodium Level 141 mEq/L (136-145)
[2024-11-12 01:04] LABS: AST/SGOT 19 U/L (15-37); Bilirubin Direct < 0.2 mg/dL (0-0.2); Potassium 3.5 mEq/L (3.5-5.1)
--- NOTE | 2024-11-12 03:21 | RAD REPORT ---
CLINICAL HISTORY: Abdominal pain. COMPARISON: CT Abdomen Pelvis 10/28/2024. TECHNIQUE: CT ABDOMEN PELVIS WITH IV CONTRAST on 11/11/2024 11:51 PM CDT This exam was performed according to our departmental dose-optimization program, which includes autom ated exposure control, adjustment of the mA and/or kV according to patient size and/or use of iterative reconstruction technique. FINDINGS: Lower lungs are clear. Abdomen: The liver is normal in appearance. There is no biliary dilatation. Gallbladder is not seen. The pancreas and spleen are normal in appearance. The adrenal glands and kidneys are unremarkable. Abdominal aorta is normal in course and caliber without aneurysm. There is no free air. There is no r etroperitoneal adenopathy. Pelvis: There is a small bowel suture line in the right mid abdomen anteriorly. Multiple small bowel loops are closely apposed to the anterior abdominal wall from a presumed prior midline laparotomy. Underlying adhesions are likely. Urinary bladder is unremarkable. There is no free fluid. Appendix is normal. Skeleton: There are no acute osseous findings. No suspicious bony lesions. IMPRESSION: No definite acute process. Electronically signed by: Darrel Calixto MD 11/12/2024 03:07 AM CDT RP Due to temporary technical issues with the PACS/[employer] reporting system, reports are being vijay d by the in-house radiologist without review as a courtesy to ensure prompt reporting the interpreting radiologist is fully responsible for the content of the report. Transcribed Date/Time: 11/12/2024 3:20 AM
--- NOTE | 2024-11-12 04:35 | ER ---
Nurse's Notes [facility] Name: Angel Thompson Age: 44 yrs Sex: Male : 1980 Arrival Date: 11/11/2024 Time: 23:20 Bed 15 Private MD: Diagnosis: Upper abdominal pain, unspecified;Acute abdominal wall pain at the site of postoperative incision Presentation: 11/11 23:38 Chief complaint: Patient states: mid abdominal pain and swelling that started again 2 me1 days ago. Pain level 6/10. Denies n/v/d. Denies fever. Patient had hernia repair in May last year and was seen here 10/28 for abd pain, swelling at incision site and n/v- was dx w/diverticulitis. Patient finished treatment for that and then 2 days ago abdomen started swelling at incision site and hurting again. Coronavirus screen: At this time, the client does not indicate any symptoms associated with coronavirus-19. Ebola Screen: No symptoms or risks identified at this time. Initial Sepsis Screen: Does the patient meet any 2 criteria? No. Patient's initial sepsis screen is negative. Initial Sepsis Screen: Does the patient have a suspected source of infection? No. Patient's initial sepsis screen is negative. Risk Assessment: Do you want to hurt yourself or someone else? Patient reports no desire to harm self or others. Onset of symptoms was November 09, 2024. 23:38 Method Of Arrival: Ambulatory hi1 23:38 Acuity: JESSICA 3 me1 Triage Assessment: 23:41 General: Appears obese, well groomed, well developed, Behavior is calm, cooperative, me1 appropriate for age. Pain: Complains of pain in umbilical area Pain does not radiate. Pain currently is 6 out of 10 on a pain scale. Quality of pain is described as aching, Pain began 2-3 days ago. Is continuous. EENT: No signs and/or symptoms were reported regarding the EENT system. Neuro: Level of Consciousness is awake, alert, obeys commands, Oriented to person, place, time, situation, Appropriate for age. Cardiovascular: Patient's skin is warm and dry. Respiratory: Airway is patent Respiratory effort is even, unlabored, Respiratory pattern is regular, symmetrical. GI: Abdomen is round Reports upper abdominal pain. GI: Patient currently denies diarrhea, nausea, vomiting. :. : No signs and/or symptoms were reported regarding the genitourinary system. Derm: Skin is intact, is healthy with good turgor, Skin is pink, warm \T\ dry. Musculoskeletal: No signs and/or symptoms reported regarding the musculoskeletal system. Historical: - Allergies: 23:41 Flagyl; me1 23:41 relafen; me1 - PMHx: 23:41 Diverticulitis; me1 - PSHx: 23:41 hernia repair (hernia ); me1 - Immunization history:: Adult Immunizations up to date. - Infectious Disease History:: Denies. - Social history:: Smoking status: Patient denies any tobacco usage or history of. - Family history:: not pertinent. Screenin/12 00:44 [facility] ED Fall Risk Assessment (Adult) History of falling in the last 3 months, kd4 including since admission No falls in past 3 months (0 pts) Confusion or Disorientation No (0 pts) Intoxicated or Sedated No (0 pts) Impaired Gait No (0 pts) Mobility Assist Device Used No (0 pt) Altered Elimination No (0 pt) Score/Fall Risk Level 0 - 2 = Low Risk. 00:44 Abuse screen: Denies threats or abuse. Nutritional screening: No deficits noted. kd4 Tuberculosis screening: No symptoms or risk factors identified. Assessment: 00:44 General: Appears in no apparent distress. Pain: Pain currently is 6 out of 10 on a pain kd4 scale. Neuro: No deficits noted. Respiratory: No deficits noted. GI: Bowel sounds present X 4 quads. Abdomen is tender to palpation umbilical. : No signs and/or symptoms were reported regarding the genitourinary system. Vital Signs: 11/11 23:38 BP 135 / 81; Pulse 81; Resp 18; Temp 97.9; Pulse Ox 97% ; Weight 127.01 kg; Height 5 me1 ft. 6 in. ; Pain 6/10; 11/12 05:03 BP 107 / 80; Pulse 68; Resp 18; Temp 98; Pulse Ox 95% on R/A; kd4 05:12 Pain 3/10; kd4 11 23:38 Body Mass Index 45.19 (127.01 kg, 167.64 cm) hi1 11/11 23:38 Pain Scale: Adult me1 05:12 Pain Scale: Adult kd4 [place] Coma Score: 00:44 Eye Response: spontaneous(4). Motor Response: obeys commands(6). Verbal Response: kd4 oriented(5). Total: 15. 11/13 00:10 Eye Response: spontaneous(4). Motor Response: obeys commands(6). Verbal Response: sp4 oriented(5). Total: 15. ED Course: 11/11 23:23 Patient arrived in ED. im 23:41 Triage completed. me1 23:41 Arm band placed on Patient placed in an exam room. me1 23:43 Jesus Roberts MD is Attending Physician. sp4 11/12 00:44 Patient has correct armband on for positive identification. Bed in low position. Side kd4 rails up X2. Client placed on continuous cardiac and pulse oximetry monitoring. NIBP monitoring applied. Pulse ox on. NIBP on. 00:44 Initial lab(s) drawn, by me. Inserted saline lock: 20 gauge in right antecubital area, kd4 using aseptic technique. 00:46 Robert Lock, JOVANA is Primary Nurse. kd4 01:29 CT Abd/Pelvis - IV Contrast Only In Process Unspecified. EDMS 04:34 Lucas Gonzalez MD is Referral Physician. sp4 05:12 No provider procedures requiring assistance completed. IV discontinued. kd4 05:13 Provided Education on: d/c instruction. kd4 Administered Medications: 00:43 Drug: morphine IVP or IV 4 mg IVP once over 4 mins Route: IVP; Infused Over: 4 mins; kd4 Site: right antecubital; 05:15 Follow up: Response: Pain is decreased kd4 00:43 Drug: Ketorolac IVP 30 mg IVP once Route: IVP; Site: right antecubital; kd4 05:15 Follow up: Response: No adverse reaction kd4 00:43 Drug: Ondansetron IVP 4 mg IVP once; over 2 minutes Route: IVP; Site: right antecubital;kd4 05:15 Follow up: Response: No adverse reaction kd4 00:43 Drug: NS 0.9% IV 1000 ml IV at bolus Per protocol; to be given as a bolus over 60 kd4 minutes Route: IV; Rate: bolus; Site: right antecubital; 05:15 Follow up: Response: No adverse reaction kd4 05:16 Follow up: IV Status: Completed infusion kd4 Medication: 05:14 VIS not applicable for this client. kd4 Outcome: 04:35 Discharge ordered by . sp4 05:12 Discharged to home ambulatory, kd4 05:12 Condition: stable 05:12 Discharge instructions given to patient, Instructed on discharge instructions, follow up and referral plans. medication usage, Demonstrated understanding of instructions, follow-up care, medications, Prescriptions given X 3, 05:16 Patient left the ED. kd4 Signatures: Dispatcher [employer] Jesus Arauz MD MD sp4 Terri Ott Michelle, RN RN me1 Robert Lock RN RN kd4 Corrections: (The following items were deleted from the chart) 11/11 23:42 23:41 PSHx: hernia; me1 me1
--- NOTE | 2024-11-12 04:35 | EDPHYS ---
Physician Documentation [facility] Name: Angel Thompson Age: 44 yrs Sex: Male : 1980 Arrival Date: 11/11/2024 Time: 23:20 Bed 15 Private MD: ED Physician Jesus Roberts HPI: 11/11 23:43 This 44 yrs old Male presents to ER via Ambulatory with complaints of sp4 Abdominal Pain, Abdominal Swelling. 11/13 00:09 44-year-old male presents with complaint of acute abdominal pain and abdominal swelling sp4 also pain at the previous hernia repair incision.. Historical: - Allergies: 11/11 23:41 Flagyl; me1 23:41 relafen; me1 - PMHx: 23:41 Diverticulitis; me1 - PSHx: 23:41 hernia repair (hernia ); me1 - Immunization history:: Adult Immunizations up to date. - Infectious Disease History:: Denies. - Social history:: Smoking status: Patient denies any tobacco usage or history of. - Family history:: not pertinent. ROS: 11/13 00:09 Constitutional: Negative for fever, chills, and weight loss, positive for abdominal sp4 pain and abdominal tenderness All other systems are negative, Exam: 00:10 Constitutional: This is a well developed, well nourished patient who is awake, alert, sp4 and in no acute distress. Head/Face: Normocephalic, atraumatic. Eyes: Pupils equal round and reactive to light, extra-ocular motions intact. Lids and lashes normal. Conjunctiva and sclera are not injected. Cornea within normal limits. Periorbital areas with no swelling, redness, or edema. ENT: Nares patent. No nasal discharge, no septal abnormalities noted. Tympanic membranes are normal and external auditory canals are clear. Oropharynx with no redness, swelling, or masses, exudates, or evidence of obstruction, uvula midline. Mucous membranes moist. Neck: Trachea midline, no thyromegaly or masses palpated, and no cervical lymphadenopathy. Supple, full range of motion without nuchal rigidity, or vertebral point tenderness. Chest/axilla: Normal chest wall appearance and motion. Nontender with no deformity. No lesions are appreciated. Cardiovascular: Regular rate and rhythm with a normal S1 and S2. No gallops, murmurs, or rubs. Normal PMI, no JVD. No pulse deficits. Respiratory: Lungs have equal breath sounds bilaterally, clear to auscultation and percussion. No rales, rhonchi or wheezes noted. No increased work of breathing, no retractions or nasal flaring. Abdomen/GI: Soft, with normal bowel sounds. No distension or tympany. No guarding or rebound. There is postoperative scar periumbilical location with associated pain redness and tenderness. Back: No spinal tenderness. No costovertebral tenderness. Skin: Warm, dry with normal turgor. Normal color with no rashes, no lesions, and no evidence of cellulitis. MS/ Extremity: Pulses equal, no cyanosis. Neurovascular intact. Full, normal range of motion. Neuro: Awake and alert, GCS 15, oriented to person, place, time, and situation. Cranial nerves II-XII grossly intact. Motor strength 5/5 in all extremities. Sensory grossly intact. Psych: Awake, alert, with orientation to person, place and time. Behavior, mood, and affect are within normal limits Vital Signs: 11/11 23:38 BP 135 / 81; Pulse 81; Resp 18; Temp 97.9; Pulse Ox 97% ; Weight 127.01 kg; Height 5 me1 ft. 6 in. ; Pain /; 11/12 05:03 BP 107 / 80; Pulse 68; Resp 18; Temp 98; Pulse Ox 95% on R/A; kd4 05:12 Pain 310; kd4 11/11 23:38 Body Mass Index 45.19 (127.01 kg, 167.64 cm) me1 11/11 23:38 Pain Scale: Adult me1 05:12 Pain Scale: Adult kd4 [place] Coma Score: 00:44 Eye Response: spontaneous(4). Motor Response: obeys commands(6). Verbal Response: kd4 oriented(5). Total: 15. 11/13 00:10 Eye Response: spontaneous(4). Motor Response: obeys commands(6). Verbal Response: sp4 oriented(5). Total: 15. MDM: 11/11 23:59 Medical Screening Exam initiated sp4 11/13 00:10 Differential diagnosis: bowel obstruction, coronary artery disease, diverticulitis, sp4 gastritis, gastroesophageal reflux disease, GI Bleed. Data reviewed: vital signs, nurses notes, lab test result(s), radiologic studies, CT scan. 00:11 Consideration of Admission/Observation Escalation of care including sp4 admission/observation considered. ED course: CT does not reveal any acute abdominal abnormality. Patient stable for discharge home.. 11/11 23:50 Order name: Basic Metabolic Panel; Complete Time: 04:27 sp4 11/11 23:50 Order name: CBC with Diff; Complete Time: 04:27 sp4 11/11 23:50 Order name: LFT's; Complete Time: 04:27 sp4 11/11 23:50 Order name: Lipase; Complete Time: 04:27 sp4 11/11 23:51 Order name: CT Abd/Pelvis - IV Contrast Only; Complete Time: 00:11 sp4 11/11 23:50 Order name: IV Saline Lock 4 11/11 23:50 Order name: Labs collected and sent [facility] 11/11 23:50 Order name: O2 Per Protocol 4 11/11 23:50 Order name: O2 Sat Monitoring sp4 Administered Medications: 11/12 00:43 Drug: morphine IVP or IV 4 mg IVP once over 4 mins Route: IVP; Infused Over: 4 mins; kd4 Site: right antecubital; 05:15 Follow up: Response: Pain is decreased kd4 00:43 Drug: Ketorolac IVP 30 mg IVP once Route: IVP; Site: right antecubital; kd4 05:15 Follow up: Response: No adverse reaction kd4 00:43 Drug: Ondansetron IVP 4 mg IVP once; over 2 minutes Route: IVP; Site: right antecubital;kd4 05:15 Follow up: Response: No adverse reaction kd4 00:43 Drug: NS 0.9% IV 1000 ml IV at bolus Per protocol; to be given as a bolus over 60 kd4 minutes Route: IV; Rate: bolus; Site: right antecubital; 05:15 Follow up: Response: No adverse reaction kd4 05:16 Follow up: IV Status: Completed infusion kd4 Disposition Summary: 11/12/24 04:35 Discharge Ordered Notes: Location: Home sp4 Problem: new sp4 Symptoms: have improved sp4 Condition: Stable sp4 Diagnosis - Upper abdominal pain, unspecified sp4 - Acute abdominal wall pain at the site of postoperative incision sp4 Followup: sp4 - With: Lucas Gonzalez MD - When: 7 - 10 days - Reason: Recheck today's complaints Discharge Instructions: - Discharge Summary Sheet sp4 - Abdominal Pain, Adult sp4 Forms: - Patient Portal Instructions sp4 Prescriptions: - Tramadol 50 mg Oral tablet - take 1 tablet ORAL route every 8 hours as needed; 25 tablet; Refills: 0, sp4 Product Selection Permitted - dicyclomine 20 mg Oral tablet - take 2 tablet ORAL route 3 times per day PRN abdominal pain; 30 tablet; sp4 Refills: 0, Product Selection Permitted - ondansetron 8 mg Oral Tablet,disintegrating - take 1 tablet ORAL route every 8 hours PRN nausea; 30 tablet; Refills: 0, sp4 Product Selection Permitted Signatures: Dispatcher [employer] EDJesus Pretty MD MD sp4 Tammie Orta RN RN me1 Robert Lock RN RN kd4 Corrections: (The following items were deleted from the chart) 11/11 23:42 23:41 PSHx: hernia; me1 me1 23:51 23:51 Abdomen Pelvis W Con+CT.RAD.BRZ ordered. EDMS EDMS
[2024-11-12 05:30] VITALS: BP 107/80; TEMP 98; O2SAT 95
== END 2024-11-12 05:16 | disposition home or self-care (01) ==
LOC: ER 23:20
DX: R10.10 Upper abdominal pain, unspecified (principal)
CPT/HCPCS: 85025; 80048; 36415; 80076; 83690; 74177; Q9967; J2405; J7030; 96361; 96374; 96375; 99284

== ENCOUNTER 2024-12-24 20:50 | Inpatient (IN) | payer BC ==
[2024-12-24] MEDS ORDERED: ONDANSETRON 4 MG/2 ML VIAL ONE (21:42)
[2024-12-24] MEDS ORDERED: MORPHINE 4 MG/ML SYR ONE ×2 (21:42→23:06)
[2024-12-24] MEDS ORDERED: NA CHLORIDE 0.9% 1,000 ML ONE ×2 (21:43→23:39)
[2024-12-24 21:44] LABS: Absolute Basophils 0.1 K/uL (0-0.5); Absolute Eosinophils 0.2 K/uL (0-0.5); Absolute Lymphocytes (CBC) 2.3 K/uL (0.7-4.9); Absolute Monocytes 0.5 K/uL (0.1-1.3); Basophils % 0.6 % (0-1.3); Eosinophils % 1.2 % (0-4.4); Hematocrit 41.4 % (39.6-49.0); Hemoglobin 14.1 g/dL (13.6-17.9); Lymphocytes % 15.3 % (15.3-44.8); MCHC 34.2 g/dL (32.0-36.0); MPV 7.9 fL (7.6-11.3); Monocytes % 3.5 % (3.3-12.3); Neutrophils % 79.4 % (41.7-73.7); Platelets 321 thou/uL (152-406); RBC Red Blood Cell Count 4.87 M/uL (4.33-5.43); Red Cell Distribution Width 14.7 % (12.1-15.2)
[2024-12-24 22:03] LABS: Albumin 3.3 g/dL (3.4-5.0); Albumin/Globulin Ratio 0.9 (1.1-1.8); Anion Gap 7.7 mEq/L (5.0-15.0); Bilirubin Total 0.5 mg/dL (0.2-1.0); Globulin 3.7 g/dL (2.3-3.5); Potassium 3.7 mEq/L (3.5-5.1)
--- NOTE | 2024-12-24 22:41 | RAD REPORT ---
EXAMINATION: Abdomen Pelvis W Contrast CLINICAL INDICATION: Male, 44 years old.ABD PAIN TECHNIQUE: CT abdomen and pelvis was performed, after the administration of IV contrast, [facility]. Axial, sagittal and coronal reconstructions were obtained. One or more of the following dose reduction techniques were used: Automated exposure control, adjustment of the mA and/o r kV according to patient size, and/or iterative reconstruction. Unless otherwise specified, incidental findings do not require dedicated imaging follow-up. [id number]. COMPARISON: 11/12/2024 FINDINGS: LOWER CHEST: No acute process identified.No significant pericardial effusion. UPPER GI: No significant abnormality. LIVER: Hepatic steatosis, but otherwise unremarkable. GALLBLADDER/BILE DUCTS: Cholecystectomy? PANCREAS: No mass, ductal dilation, or gissell-pancreatic fluid. SPLEEN: Unremarkable. ADRENALS: No adrenal masses. KIDNEYS AND URETERS: No hydronephrosis.No suspicious renal mass.No renal calculi. ABDOMINAL AORTA AND OTHER VESSELS: Normal caliber aorta and IVC. PERITONEUM: No abnormal free fluid. No free air. LYMPH NODES: No pathologic lymphadenopathy. ABDOMINAL WALL: Several bowel containing ventral hernias are present. One such supraumbilical hernia has an adjacent area of dilated small bowel with inflammatory changes present. There is also some fluid. There is a knuckle of small bowel extending through the hernia concerning for a Calixto-type h ernia and possible incarceration. The upstream small bowel measures up to 3.8 cm.. Diverticulosis without diverticulitis. Partial small bowel resection. SMALL BOWEL/COLON: Small bowel has normal course and caliber. No colonic wall thickening or pericolon ic inflammatory changes. URINARY BLADDER: Underdistended but grossly unremarkable. REPRODUCTIVE ORGANS: No pathologic process. MUSCULOSKELETAL: No acute or suspicious osseous abnormality. ADDITIONAL FINDINGS: None. IMPRESSION: Small bowel obstruction secondary to a possible Calixto-type small bowel containing supraumbilical he rnia. Multiple ventral hernias are noted containing bowel but only the one has a bowel obstruction and inflammation. If not reducible, recommend surgical consultation.
--- NOTE | 2024-12-24 23:01 | EDPHYS ---
Physician Documentation [facility] Name: Angel Thompson Age: 44 yrs Sex: Male : 1980 Arrival Date: 12/24/2024 Time: 20:50 Bed 26 Private MD: ED Physician Sudhir Penny HPI: 12/24 22:23 This 44 yrs old Male presents to ER via Wheelchair with complaints of kb Abdominal Pain. 22:23 Patient is a 44-year-old male who presents for upper abdominal pain, nausea and kb vomiting that started at 5 PM. Reports history of diverticulitis and a hernia. Denies diarrhea or fever.. Historical: - Allergies: 21:02 Flagyl; lg3 21:02 relafen; lg3 - Home Meds: 21:02 monjauro [Active]; lg3 - PMHx: 21:02 Diverticulitis; lg3 - PSHx: 21:02 hernia repair (maci); Cholecystectomy; lg3 - Immunization history:: Adult Immunizations up to date. - Infectious Disease History:: Denies. - Social history:: Smoking status: Patient denies any tobacco usage or history of. Patient/guardian denies using alcohol, street drugs. ROS: 22:22 Constitutional: As per HPI kb Exam: 22:22 Constitutional: This is a well developed, well nourished patient who is awake, alert, kb and in no acute distress. Head/Face: Normocephalic, atraumatic. ENT: Moist Mucous membranes Cardiovascular: Regular rate Respiratory: Respirations even and unlabored. No increased work of breathing. Talking in full sentences Skin: Warm, dry with normal turgor. Normal color. MS/ Extremity: Pulses equal, no cyanosis. Neurovascular intact. Full, normal range of motion. Neuro: Awake and alert, GCS 15, oriented to person, place, time, and situation. 22:22 Abdomen/GI: Inspection: abdomen appears normal, Bowel sounds: normal, Palpation: soft, in all quadrants, mild abdominal tenderness, in the right lower quadrant and left lower quadrant, moderate abdominal tenderness, in the right upper quadrant and left upper quadrant, Vital Signs: 20:59 BP 131 / 90; Pulse 64; Resp 16 S; Temp 97.6(O); Pulse Ox 100% on R/A; Weight 122.47 kg lg3 (R); Height 5 ft. 6 in. (R); Pain 10/10; 23:27 BP 129 / 86; Pulse 79; Resp 17; Temp 98.4; Pulse Ox 98% ; mb12 20:59 Body Mass Index 43.58 (122.47 kg, 167.64 cm) lg3 20:59 Pain Scale: Adult lg3 MDM: 20:58 Medical Screening Exam initiated kb 22:23 Data reviewed: vital signs, nurses notes. kb 22:59 Differential diagnosis: bowel obstruction, diverticulitis, non-specific abd pain, kb pancreatitis. Consideration of Admission/Observation Patient was admitted/placed on observation. Escalation of care including admission/observation considered. Management of patient was discussed with the following: Hospitalist: Dr Kendall accepts pt for admission. Steam Heating Installer: Dr Gonzalez accepts pt for consult. Counseling: I had a detailed discussion with the patient and/or guardian regarding the historical points, exam findings, and any diagnostic results supporting the discharge/admit diagnosis, lab results, radiology results, the need for further work-up and treatment in the hospital. ED course: hernia reduced. 12/24 21:01 Order name: CBC with Diff; Complete Time: 21:54 kb 12/24 21:01 Order name: CMP; Complete Time: 22:05 kb 12/24 21:01 Order name: Lipase; Complete Time: 22:05 kb 12/24 23:38 Order name: Protime (+INR) EDMD 12/24 23:38 Order name: PTT, Activated Partial Thromb EDMD 12/24 23:38 Order name: CBC with Automated Diff EDMS 12/24 23:38 Order name: CBC with Automated Diff EDMS 12/24 23:38 Order name: Comprehensive Metabolic Panel EDMD 12/24 23:38 Order name: Comprehensive Metabolic Panel EDMD 12/24 23:43 Order name: Hemoglobin A1c EDMD 12/25 00:41 Order name: Glucose, Ancillary Testing EDMD 12/25 06:25 Order name: Protime (+INR) EDMD 12/25 06:25 Order name: PTT, Activated Partial Thromb EDMD 12/25 06:37 Order name: Hemoglobin A1c EDMD 12/24 21:01 Order name: CT Abd/Pelvis - IV Contrast Only; Complete Time: 22:48 kb 12/24 23:37 Order name: CONS Physician Consult EDMD 12/24 21:01 Order name: IV Saline Lock; Complete Time: 21:50 kb 12/24 21:01 Order name: Labs collected and sent; Complete Time: 21:50 kb 12/24 22:58 Order name: NPO; Complete Time: 23:27 kb Administered Medications: 21:48 Drug: Ondansetron IVP 4 mg IVP once; over 2 minutes Route: IVP; Site: right antecubital;lg3 23:58 Follow up: Response: No adverse reaction; Marked relief of symptoms lg3 21:48 Drug: morphine IVP or IV 4 mg IVP once over 4 mins Route: IVP; Infused Over: 4 mins; lg3 Site: right antecubital; 23:58 Follow up: Response: No adverse reaction; Marked relief of symptoms lg3 21:48 Drug: NS 0.9% IV 1000 ml IV at 1 bolus Per protocol; to be given as a bolus over 60 lg3 minutes Route: IV; Rate: 1 bolus; Site: right antecubital; 23:58 Follow up: Response: No adverse reaction; IV Status: Completed infusion; IV Intake: lg3 1000ml 23:27 Drug: Piperacillin-Tazobactam IVPB 3.375 grams IVPB once over 60 mins; (mix in NS 100 mb12 mL) Route: IVPB; Infused Over: 60 mins; Site: right antecubital; 23:59 Follow up: Response: No adverse reaction; IV Status: Completed infusion; IV Intake: lg3 100ml 23:27 Drug: morphine IVP or IV 4 mg IVP once over 4 mins Route: IVP; Infused Over: 4 mins; mb12 Site: right antecubital; 23:58 Follow up: Response: No adverse reaction; Marked relief of symptoms lg3 Disposition: 12/25 21:38 Co-signature as Attending Physician, Sudhir Penny MD I reviewed the patient's care rn provided by the Advanced Practice Provider and agree with the diagnosis and treatment plan. Disposition Summary: 12/24/24 23:01 Hospitalization Ordered Notes: Hospitalization Status: Inpatient Admission kb Provider: Christian Kendall Condition: Stable kb Problem: new kb Symptoms: are unchanged kb Bed/Room Type: Standard kb Location: Telemetry/MedSurg (Inpatient)(12/25/24 07:55) bd Room Assignment: [facility](12/25/24 07:55) bd Diagnosis - Small Bowel Obstruction secondary to periumbilical hernia kb Forms: - Medication Reconciliation Form kb - SBAR form kb - Leadership Thank You Letter kb Signatures: Dispatcher [employer] EDBlanca Jimenez, DATABASE DESIGN ANALYST-C DATABASE DESIGN ANALYST-Anitra Ludwig Roman, MD MD rn Able, JOVANA Og RN lg3 Sabrina Sharma rv1 Lisa Montgomery 12 Corrections: (The following items were deleted from the chart) 12/24 21:03 21:02 Home Meds: None; lg3 lg3 23:16 23:01 Telemetry/MedSurg (Inpatient) kb rv1 23:16 23:01 kb rv1 12/25 07:55 12/24 23:16 [facility] ER HOLD rv1 bd 12/25 07:55 12/24 23:16 ERHOLD- rv1 bd
--- NOTE | 2024-12-24 23:01 | ER ---
Nurse's Notes [facility] Name: Angel Thompson Age: 44 yrs Sex: Male : 1980 Arrival Date: 12/24/2024 Time: 20:50 Bed 26 Private MD: Diagnosis: Small Bowel Obstruction secondary to periumbilical hernia Presentation: 12/24 20:59 Chief complaint: Patient states: abdominal pain and nausea beginning 1700. Coronavirus lg3 screen: Client denies travel out of the [place] in the last 14 days. At this time, the client does not indicate any symptoms associated with coronavirus-19. Ebola Screen: No symptoms or risks identified at this time. Initial Sepsis Screen: Does the patient meet any 2 criteria? No. Patient's initial sepsis screen is negative. Does the patient have a suspected source of infection? No. Patient's initial sepsis screen is negative. Risk Assessment: Do you want to hurt yourself or someone else? Patient reports no desire to harm self or others. Onset of symptoms was December 24, 2024. 20:59 Method Of Arrival: Wheelchair lg3 20:59 Acuity: JESSICA 3 lg3 Triage Assessment: 21:02 General: Appears in no apparent distress. uncomfortable, Behavior is calm, cooperative. lg3 Pain: Complains of pain in abdomen. EENT: No deficits noted. No signs and/or symptoms were reported regarding the EENT system. Neuro: No deficits noted. [place] Agitation-Sedation Scale (RASS): 0 - Alert and Calm Level of Consciousness is awake, alert, obeys commands, Oriented to person, place, time, situation. Cardiovascular: No deficits noted. Denies chest pain, shortness of breath, Capillary refill < 3 seconds Clubbing of nail beds is absent JVD is absent Patient's skin is warm and dry. Respiratory: No deficits noted. Airway is patent Respiratory effort is even, unlabored, Respiratory pattern is regular, symmetrical. GI: Abdomen is round non-distended, obese, Abd is soft X 4 quads Abdomen is tender to palpation in right upper quadrant and right lower quadrant Reports lower abdominal pain, upper abdominal pain, cramping, nausea. : No signs and/or symptoms were reported regarding the genitourinary system. Derm: No deficits noted. No signs and/or symptoms reported regarding the dermatologic system. Skin is intact, is healthy with good turgor, Skin is dry, Skin is normal, Skin temperature is warm. Musculoskeletal: No deficits noted. No signs and/or symptoms reported regarding the musculoskeletal system. Circulation, motion, and sensation intact. Range of motion: intact in all extremities. Historical: - Allergies: 21:02 Flagyl; lg3 21:02 relafen; lg3 - Home Meds: 21:02 monjauro [Active]; lg3 - PMHx: 21:02 Diverticulitis; lg3 - PSHx: 21:02 hernia repair (maci); Cholecystectomy; lg3 - Immunization history:: Adult Immunizations up to date. - Infectious Disease History:: Denies. - Social history:: Smoking status: Patient denies any tobacco usage or history of. Patient/guardian denies using alcohol, street drugs. Screenin:59 [facility] ED Fall Risk Assessment (Adult) History of falling in the last 3 months, lg3 including since admission No falls in past 3 months (0 pts) Confusion or Disorientation No (0 pts) Intoxicated or Sedated No (0 pts) Impaired Gait No (0 pts) Mobility Assist Device Used No (0 pt) Altered Elimination No (0 pt) Score/Fall Risk Level 0 - 2 = Low Risk Oriented to surroundings, Maintained a safe environment, Educated pt \T\ family on fall prevention, incl call for assistance when getting out of bed, Assessed \T\ reinforced patient's understanding of fall precautions. Abuse screen: Denies threats or abuse. Denies injuries from another. Nutritional screening: No deficits noted. Tuberculosis screening: No symptoms or risk factors identified. Assessment: 20:59 General: see triage assessment. GI: Bowel sounds present X 4 quads. Abd is soft X 4 lg3 quads Abdomen is tender to palpation in right upper quadrant and right lower quadrant Reports lower abdominal pain, upper abdominal pain, nausea. Vital Signs: 20:59 BP 131 / 90; Pulse 64; Resp 16 S; Temp 97.6(O); Pulse Ox 100% on R/A; Weight 122.47 kg lg3 (R); Height 5 ft. 6 in. (R); Pain 10/10; 23:27 BP 129 / 86; Pulse 79; Resp 17; Temp 98.4; Pulse Ox 98% ; mb12 20:59 Body Mass Index 43.58 (122.47 kg, 167.64 cm) lg3 20:59 Pain Scale: Adult lg3 ED Course: 20:56 Patient arrived in ED. gm2 20:58 Blanca Garcia [facility]-C [facility] kb 20:58 Sudhir Penny MD is Attending Physician. kb 20:59 Patient has correct armband on for positive identification. lg3 21:02 Triage completed. lg3 21:02 Arm band placed on right wrist. lg3 21:47 Inserted saline lock: 22 gauge in right antecubital area, using aseptic technique. f Blood collected. Flushed with 10 mL NS. 21:48 Initial lab(s) drawn, by ut, sent to lab. kmf 21:50 CMP Sent. f 21:50 Lipase Sent. kmf 22:31 CT Abd/Pelvis - IV Contrast Only In Process Unspecified. EDMS 23:00 Christian Kendall MD is Hospitalizing Provider. kb 23:01 Lisa Montgomery is Primary Nurse. mb12 23:57 Provided Education on: admission. lg3 23:57 No provider procedures requiring assistance completed. Patient admitted, IV remains in lg3 place. Administered Medications: 21:48 Drug: Ondansetron IVP 4 mg IVP once; over 2 minutes Route: IVP; Site: right antecubital;lg3 23:58 Follow up: Response: No adverse reaction; Marked relief of symptoms lg3 21:48 Drug: morphine IVP or IV 4 mg IVP once over 4 mins Route: IVP; Infused Over: 4 mins; lg3 Site: right antecubital; 23:58 Follow up: Response: No adverse reaction; Marked relief of symptoms lg3 21:48 Drug: NS 0.9% IV 1000 ml IV at 1 bolus Per protocol; to be given as a bolus over 60 lg3 minutes Route: IV; Rate: 1 bolus; Site: right antecubital; 23:58 Follow up: Response: No adverse reaction; IV Status: Completed infusion; IV Intake: lg3 1000ml 23:27 Drug: Piperacillin-Tazobactam IVPB 3.375 grams IVPB once over 60 mins; (mix in NS 100 mb12 mL) Route: IVPB; Infused Over: 60 mins; Site: right antecubital; 23:59 Follow up: Response: No adverse reaction; IV Status: Completed infusion; IV Intake: lg3 100ml 23:27 Drug: morphine IVP or IV 4 mg IVP once over 4 mins Route: IVP; Infused Over: 4 mins; mb12 Site: right antecubital; 23:58 Follow up: Response: No adverse reaction; Marked relief of symptoms lg3 Medication: 23:57 VIS not applicable for this client. lg3 Intake: 23:58 IV: 1000ml; Total: 1000ml. lg3 23:59 IV: 100ml; Total: 1100ml. lg3 Outcome: 23:01 Decision to Hospitalize by Provider. kb 23:57 Admitted to ER Hold. Please see [facility] for further documentation. lg3 23:57 Condition: stable 23:57 Instructed on the need for admit, Demonstrated understanding of instructions, 12/25 09:03 Patient left the ED. bc6 Signatures: Dispatcher [employer] EDMS Blanca Garcia, Lenka Whittington RN RN lg3 Sandi Husain bc6 Ava Kiser 2 Whitney Schmitz [facility] Lisa Montgomery 12 Corrections: (The following items were deleted from the chart) 12/24 21:03 21:02 Home Meds: None; lg3 lg3
[2024-12-24] MEDS ORDERED: NA CHLORIDE 0.9% 100 ML ONE (23:06)
[2024-12-24] MEDS ORDERED: PIPERACIL/TAZO 3.375 GM VIAL IV ONE (23:07)
[2024-12-24] MEDS ORDERED: ALPRAZOLAM 0.25 MG TABLET PO PRN (23:32)
[2024-12-24] MEDS ORDERED: ONDANSETRON 4 MG/2 ML VIAL IV PRN (23:32)
--- NOTE | 2024-12-24 23:40 | P.HP ---
Patient History Date of Service: 12/25/24 Reason for admission: Small bowel obstruction History of Present Illness: 44-year-old male with a past medical history of diverticulitis presenting with abdominal pain that began earlier today around 5 PM. Associated symptoms include nausea and vomiting. He felt better after his initial episode of vomiting. He rated the pain as a 10 out of 10. He he took some tramadol at home. He states he does have diabetes. He supposed to be on Mounjaro however he has not taken his dose in the last 2 weeks. His last bowel movement was at lunchtime earlier today. He has had this hernia now for quite some time. He denies fevers and chills. Hernia was reduced in the emergency room. Allergies metronidazole [From Flagyl] Allergy (Verified 05/15/24 10:59) Rash nabumetone [From Relafen] Allergy (Verified 05/15/24 10:59) Rash Home Medications: Hydrocodone 5/APAP 325 [[place] 5/325] 1 tab PO Q6H PRN 7 Days #30 tab 05/19/24 Tirzepatide [Mounjaro] 2.5 mg SQ EVERY 7TH DAY 12/25/24 - Past Medical/Surgical History Diabetic: No -: Obesity -: Umbilical hernia -: Umbilical hernia repair with mesh Psychosocial/ Personal History: Lives at home with his and Daughter - Family History Mother -: Diabetes Brother -: Diabetes - Social History Alcohol use: Yes CD- Drugs: No Caffeine use: Yes Review of Systems General: As per HPI Eyes: Unremarkable ENT: Unremarkable Respiratory: Unremarkable Cardiovascular: Unremarkable Gastrointestinal: Vomiting, Abdominal Pain Genitourinary: Unremarkable Musculoskeletal: Unremarkable Integumentary: Unremarkable Neurological: Unremarkable Lymphatics: Unremarkable Physical Examination - Physical Exam General: In no apparent distress HEENT: Normocephalic Neck: Supple Respiratory: Clear to auscultation bilaterally Cardiovascular: No edema Capillary refill: <2 Seconds Gastrointestinal: Normal bowel sounds Musculoskeletal: No clubbing Integumentary: No rashes Neurological: Normal gait Lymphatics: No axilla or inguinal lymphadenopathy - Studies Laboratory Data (last 24 hrs) 12/24/24 12/24/24 21:38 21:38 WBC 15.10 H Hgb 14.1 Hct 41.4 Plt Count 321 Sodium 141 Potassium 3.7 BUN 18 Creatinine 0.96 Glucose 192 H Total Bilirubin 0.5 AST 15 ALT 41 Alkaline Phosphatase 98 Lipase 26 Assessment and Plan - Plan Small bowel obstruction Hernia Leukocytosis Elevated blood sugar Obstructive sleep apnea Obesity Admit to floor Hernia reduced in the ED Start IV fluid, keep n.p.o. Zofran as needed Start IV Zosyn every 8 hours Pain control with IV morphine General Surgery consulted, Dr Gonzalez Check A1c DVT prophylaxis with Lovenox - Advance Directives Does patient have a Living Will: No Does patient have a Durable POA for Healthcare: No
[2024-12-24] MEDS: NA CHLORIDE 0.9% 1,000 ML IV SCH (23:45)
[2024-12-25] MEDS ORDERED: MORPHINE 2 MG/ML SYR ONE ×2 (01:22→05:20)
[2024-12-25] MEDS: MORPHINE 2 MG/ML SYR IV PRN (01:26)
[2024-12-25 05:47] LABS: Absolute Basophils 0.1 K/uL (0-0.5); Absolute Lymphocytes (CBC) 1.6 K/uL (0.7-4.9); Absolute Monocytes 0.6 K/uL (0.1-1.3); Absolute Neutrophil 8.7 K/uL (1.8-8.0); Basophils % 0.7 % (0-1.3); Eosinophils % 0.2 % (0-4.4); Hematocrit 40.1 % (39.6-49.0); Hemoglobin 13.8 g/dL (13.6-17.9); Lymphocytes % 14.6 % (15.3-44.8); MCH 29.5 pg (27.0-35.0); MCHC 34.4 g/dL (32.0-36.0); MCV 85.6 fL (80-100); Monocytes % 5.7 % (3.3-12.3); Neutrophils % 78.8 % (41.7-73.7); Platelets 295 thou/uL (152-406); RBC Red Blood Cell Count 4.69 M/uL (4.33-5.43)
[2024-12-25 06:09] LABS: Albumin 3.2 g/dL (3.4-5.0); Albumin/Globulin Ratio 0.9 (1.1-1.8); Anion Gap 6.7 mEq/L (5.0-15.0); Bilirubin Total 0.4 mg/dL (0.2-1.0); Globulin 3.5 g/dL (2.3-3.5); Potassium 3.7 mEq/L (3.5-5.1); Protein, Total 6.7 g/dL (6.4-8.2)
[2024-12-25 06:25] LABS: PT Prothrombin Time 12.2 SECONDS (10-13.0); PTT, Activated Partial Thromb 26.5 SECONDS (27.2-37.4); Protime INR 1.07
[2024-12-25] MEDS ORDERED: ENOXAPARIN 40 MG/0.4 ML SQ ONE (08:00)
[2024-12-25] MEDS: ENOXAPARIN 40 MG/0.4 ML SQ SCH (08:25)
--- NOTE | 2024-12-25 15:57 | P.PN ---
Subjective Date of Service: 12/25/24 Chief Complaint: Small bowel obstruction Subjective: No chest pain or shortness of breath. No nausea or vomiting. c/o abdominal pain. No obvious bleeding. Looks comfortable in the bed. Passing gas but no bowel movement today. Objective: General appearance: Alert and comfortable CVS: Normal S1 and S2 Lungs: Clear to auscultation bilaterally Abdomen: Soft, bowel sounds present, mild tenderness present in mid abdomen Extremities: No lower extremity edema Physical Examination - Vital Signs Temperature: 97.5 F Blood Pressure: 129/71 Pulse: 80 Respirations: 16 Pulse Ox (%): 95 - Studies Laboratory Data (last 24 hrs) 12/24/24 12/24/24 21:38 21:38 WBC 15.10 H Hgb 14.1 Hct 41.4 Plt Count 321 Sodium 141 Potassium 3.7 BUN 18 Creatinine 0.96 Glucose 192 H Total Bilirubin 0.5 AST 15 ALT 41 Alkaline Phosphatase 98 Lipase 26 Assessment And Plan - Plan 1. Small bowel obstruction, Hernia: surgery on board, NPO,plan for surgery tomorrow, 2. Leukocytosis, low grade fever: start IV zosyn 3. Obstructive sleep apnea, Obesity: consider weight loss, f/u with PCP plan d/w patient and family, d/w Dr. Gonzalez
[2024-12-25] MEDS: PIPER TAZO 3.375 GM in NA CHLORIDE 0.9% 100 ML IV SCH (16:17)
[2024-12-26 05:50] LABS: Absolute Basophils 0.1 K/uL (0-0.5); Absolute Eosinophils 0.3 K/uL (0-0.5); Absolute Monocytes 0.4 K/uL (0.1-1.3); Basophils % 0.7 % (0-1.3); Eosinophils % 3.5 % (0-4.4); Hematocrit 39.9 % (39.6-49.0); Hemoglobin 14.1 g/dL (13.6-17.9); Lymphocytes % 22.7 % (15.3-44.8); MCH 29.8 pg (27.0-35.0); MCHC 35.3 g/dL (32.0-36.0); MCV 84.3 fL (80-100); MPV 7.6 fL (7.6-11.3); Monocytes % 4.6 % (3.3-12.3); Neutrophils % 68.5 % (41.7-73.7); Nucleated Red Blood Cells % 0.1 % (0-0); Platelets 306 thou/uL (152-406); RBC Red Blood Cell Count 4.74 M/uL (4.33-5.43); Red Cell Distribution Width 14.3 % (12.1-15.2)
[2024-12-26 06:06] LABS: Anion Gap 8.3 mEq/L (5.0-15.0); Potassium 3.3 mEq/L (3.5-5.1)
[2024-12-26] MEDS: KCL 20 MEQ/100 mL IVPB 100 ML IV SCH ×2 (09:00→10:59)
[2024-12-26] MEDS ORDERED: dexAMETHasone 10 MG/ML VIAL ONE (14:07)
[2024-12-26] MEDS ORDERED: KETOROLAC 30 MG/ML INJ ONE (14:07)
[2024-12-26] MEDS ORDERED: propofoL 200 MG/20 ML VIAL IV ONE ×2 (14:07→14:16)
[2024-12-26] MEDS ORDERED: FENTANYL CITR 100 MCG/2 ML ONE ×3 (14:07→16:42)
[2024-12-26] MEDS ORDERED: ONDANSETRON 4 MG/2 ML VIAL ONE ×2 (14:07→14:16)
[2024-12-26] MEDS ORDERED: LIDOCAINE 2% MPF 5 ML VIAL ONE ×2 (14:08→14:16)
[2024-12-26] MEDS ORDERED: MIDAZOLAM HCL 2 MG/2 ML INJ ONE ×2 (14:08→14:16)
[2024-12-26] MEDS ORDERED: ROCURONIUM 50 MG/5 ML VIAL IV ONE ×3 (14:08→15:00)
--- NOTE | 2024-12-26 14:25 | P.PN ---
Subjective Date of Service: 12/26/24 Chief Complaint: Small bowel obstruction Subjective: No chest pain or shortness of breath. No nausea or vomiting. c/o abdominal pain. No obvious bleeding. Looks comfortable in the bed. Passing gas but no bowel movement for the last 2 days. Objective: General appearance: Alert and comfortable CVS: Normal S1 and S2 Lungs: Clear to auscultation bilaterally Abdomen: Soft, sluggish bowel sounds present, mild tenderness present in mid abdomen Extremities: No lower extremity edema Physical Examination - Vital Signs Temperature: 98 F Blood Pressure: 124/75 Pulse: 86 Respirations: 14 Pulse Ox (%): 93 Assessment And Plan - Plan 1. Small bowel obstruction, Hernia: surgery on board, NPO, plan for surgery today 2. Leukocytosis, low grade fever: improving, on IV zosyn 3. Obstructive sleep apnea, Obesity: consider weight loss, f/u with PCP plan d/w patient and family, d/w Dr. Gonzalez 44-year-old patient admitted with small bowel obstruction, plan for surgery today, discharge plan depending on postoperative course.
[2024-12-26] MEDS ORDERED: Phenylephrine HCl 10 MG/ML 1 ML VIAL ONE (14:50)
[2024-12-26] MEDS ORDERED: NS 0.9% VIAL 10 ML ONE ×3 (14:50→15:36)
[2024-12-26] MEDS: LIDOCAINE HCL/EPINEPHRINE 20 ML MDV ONE (14:57)
[2024-12-26] MEDS: NA CHLORIDE 0.9% 1,000 ML ONE (15:00)
[2024-12-26] MEDS ORDERED: GLYCOPYRROLATE 0.2 MG/ML SYR ONE (16:33)
[2024-12-26] MEDS ORDERED: NEOSTIGMINE 1 MG/ML -10 ML VIAL ONE (16:33)
[2024-12-26] MEDS ORDERED: LABETALOL 20 MG/4ML SYRINGE IV ONE (16:57)
--- NOTE | 2024-12-26 17:37 | P.OP ---
Preoperative diagnosis: Small Bowel Obstruction due to Ventral Hernia Postoperative diagnosis: Small Bowel Obstruction due to Ventral Hernia Primary procedure: Laparascopic converted to open adhesiolysys > 2 hours Secondary procedure: Repair of small bowel enterotomy Other procedure(s): Primary Abdominal Closure Anesthesia: GETA + Local Estimated blood loss: <50cc Specimen: none Findings: Severe dense adhesions, incarcerated small bowel to midline Complications: None Drain(s): LYRIC drain (10mm Flat) Implants: Intercede Transferred to: ICU Condition: Fair
[2024-12-26] MEDS: HYDROMORPHONE HCL 1 MG/ML INJ ONE (18:23)
--- NOTE | 2024-12-26 19:11 | RAD REPORT ---
EXAM: XR Abdomen 1 View (KUB) HISTORY: [facility] MAIN Placement of NGT/OGT. Post Insertion. Pls call Floor to confirm if patient is ready. COMPARISON: None FINDINGS: Single view of the abdomen shows a nonspecific, nonobstructive bowel gas pattern. Enteric t ube tip projects over the proximal stomach, with sidehole nearly at the level of the GE junction. Skin lito along port sites. Surgical drain in the central abdomen. No suspicious calcifications ar e seen. The bones are unremarkable. IMPRESSION: Enteric tube along the proximal stomach as above
[2024-12-26] MEDS: SUGAMMADEX SODIUM 200 MG/2 ML VIAL IV ONE (19:34)
[2024-12-26] MEDS: KCL 20 MEQ/100 mL IVPB 100 ML IV ONE (19:48)
--- NOTE | 2024-12-26 22:10 | RAD REPORT ---
EXAM: XR Abdomen 1 View (KUB) HISTORY: [facility] MAIN ngt advanced 2 cm in COMPARISON: 12/26/2024 at 1758 hours FINDINGS: Single view of the abdomen shows a nonspecific, nonobstructive bowel gas pattern. Enteric t ube was advanced, tip terminates in the junction of body and fundus. Postsurgical changes again seen No suspicious calcifications are seen. The bones are unremarkable. IMPRESSION: Interval advancement of the enteric tube is above
--- NOTE | 2024-12-27 03:35 | OP ---
Date of Procedure: 12/26/2024 Surgeon: Lucas Gonzalez MD, Preoperative Diagnosis: Small bowel obstruction due to ventral hernia. Postoperative Diagnosis: Small bowel obstruction due to ventral hernia. Procedure Performed: 1. Laparoscopic converted to open adhesiolysis greater than 2 hours. 2. Repair of small-bowel enterotomy. Other procedures: Primary abdominal closure. Anesthesia: General endotracheal plus local. Estimated Blood Loss: Less than 50 cc. Specimens: None. Findings: Severe dense adhesions and incarcerated small bowel within a midline ventral incisional he rnia with incarceration. No strangulation evident to the bowel, but there were firm adhesions preclu ding a removal of small bowel without a small enterotomy occurring. Drains: 10 mm flat LYRIC drain. Implant: Interceed. Disposition: The patient was transferred to ICU in fair condition. Brief Hpi: The patient is a 44-year-old male known to me from previous surgery where approximately 8 years ago, he had an abdominal hernia repair performed in [place], [place] with mesh placed at that [facility]. He developed a recurrent hernia and abdominal pain, was taken to the operating room where it was noted that he had severe adhesions at that time to his previous mesh. He had his mesh removed at [facility] t time due to severe dense adhesions and he had a small-bowel resection and ultimately was discharged home. He was due to follow up and did follow up with me as an outpatient. However, due to logistic s and life events, he was unable to proceed with the surgery for his elective laparoscopic ventral he rnia repair when he developed a hernia after the initial surgery with delayed primary repair. He the refore could not proceed as he was closing in a house recently and he stated he financially could not afford it at this point, so he was doing well and planned to come back at some point in the future t o have his laparoscopic ventral hernia repair with mesh. However, as of the last several days he dev eloped abdominal pain, nausea, vomiting, and he came to the ER with a diagnosis of a small bowel obst ruction due to a ventral incisional hernia. It was reduced. However, he continued to have pain ever y day and nausea, but no vomiting. Pain was minimally improved and as such, he was deemed appropriat e for operative intervention to reduce the small bowel from the ventral hernia. Procedure In Detail: After informed consent was obtained, the patient was brought to the operating r oom, prepped and draped in the usual sterile fashion. After adequate anesthesia was achieved, I perf ormed an incision in the left upper quadrant down to subcutaneous tissues. A 5 mm 0-degree optical t rocar was introduced into the abdomen without incident or complication. Insufflation was obtained to 15 mmHg at this time. There was no injury to vital structures upon entry into the abdomen. Additio nal trocar was placed in the left mid abdomen. This was a 12 mm trocar placed under direct vision wi thout incident or complication. I inspected the abdomen at this point, found severe dense adhesions between much of the small bowel in the anterior abdominal wall in multiple segments with interloop co nnections as well as a significant portion of small bowel stuck within multiple Turkish cheese type tig ht ventral abdominal wall hernias near the midline. At this point, I opted to place additional troca rs. An additional left lower quadrant trocar was placed and a right upper quadrant trocar and a left mid abdomen trocar was placed. All trocars were 5 mm except for the mid left abdomen, which was a 1 2 mm trocar placed. All placed under direct vision without incident or complication. At this point, I performed this extensive adhesiolysis for the much of the small bowel, I was able to reduce the va st majority of it with a combination of blunt dissection, scissors, and ultimately, there was a segme nt of small bowel, which was entrapped within the hernia, which was quite difficult to manipulate and had very dense thick adhesions to the abdominal wall where the previous PDS suture appeared to be in place for his midline abdominal closure. However, there was no suture involvement of this area. It was off the midline from this area. At this point, I attempted to take down the last remaining piec e of small bowel. I then inspected the small bowel by beginning to run it laparoscopically, noted th ere was a small enterotomy in that last segment, which was quite stuck to the abdominal wall. It was through the ventral hernia and as such, there was no significant plane able to be produced between t he 2 and this is were the enterotomy occurred. There was a small pinhole enterotomy and as such, at this point, I opted to just open the patient to directly run the small bowel. At this point therefor e, I converted to an open procedure, removed the trocars, and performed a midline laparotomy while pn eumoperitoneum was still in place. I then proceeded to use a 10 blade down through his previous midl ine incision. I opened it under direct vision with laparoscope looking upward. The abdomen was ente red safely through the peritoneum using a combination of electrocautery predominantly. I then opened it through the upper midline incision. At this point, I delivered the small bowel and eviscerated i t into the field. I found a small defect and immediately grasped, elevated the segment of small arsh l and closed the defect, which is a small pinhole in the midportion of small bowel with 2 interrupted 3-0 nylon sutures with good closure of the defect. At this point, I milked the bowel and pressurize d a small segment of bowel gently to see if any defects were appreciated, no leakage of intestinal co ntents was appreciated beyond this point. I then proceeded to performed the remaining extensive adhe siolysis of the remainder of the small bowel, which was run from the ligament of Treitz to the ileoce doreen valve. Previous small bowel resection was appreciated during this segment, which was intact with out issue. After the small bowel adhesiolysis was performed, I ran the small bowel several times fro m end to end as described and no additional defects were appreciated. I did see 1 small segment, whi ch had no leakage, but a small serosal injury was appreciated, then this was also reinforced with a 3 -0 Vicryl suture in a simple interrupted fashion with good approximation of the tissues. I then irri gated the abdomen with approximately 2-3 L of warm saline and suctioned out with a pool sucker until completely dry. I then placed a 10 mm flat LYRIC drain into the abdominal cavity, brought out through l eft lower quadrant incision and secured to the skin using a 3-0 nylon suture. I then proceeded to pl rivera an abdominal position, fascial edges were grasped, elevated, and the abdominal cavity was closed using a #1 looped PDS, but just prior to closure I placed a piece of Interceed scar prevention in the midline and laid it out. At this point, I then proceeded to complete the abdominal closure with a # 1 looped PDS with good approximation of the abdominal wall. After this was completed, the skin porti on was irrigated until completely dry. Electrocautery was used minimally to achieve hemostasis and t he skin was closed with interrupted lito. At this point, the remaining trocar sites were closed w ith the same said interrupted lito after irrigating them appropriately and sterile dressings were placed. At this point, an abdominal binder was placed. The patient tolerated the procedure well wit hout incident or complication, transferred ICU for observation in fair condition. He had no hemodyna kenney stability throughout the procedure. All counts were correct at the end of the case. YONI/JEAN MARIE Voice ID: [id number] Report ID: [id number]
[2024-12-27 04:48] VITALS: BMI 43.2
[2024-12-27 05:17] LABS: Absolute Lymphocytes (CBC) 1.5 K/uL (0.7-4.9); Absolute Monocytes 0.9 K/uL (0.1-1.3); Absolute Neutrophil 10.9 K/uL (1.8-8.0); Basophils % 0.1 % (0-1.3); Hematocrit 39.1 % (39.6-49.0); Hemoglobin 13.5 g/dL (13.6-17.9); Lymphocytes % 11.7 % (15.3-44.8); MCH 29.7 pg (27.0-35.0); MCHC 34.6 g/dL (32.0-36.0); MCV 85.7 fL (80-100); MPV 7.9 fL (7.6-11.3); Monocytes % 6.4 % (3.3-12.3); Neutrophils % 81.8 % (41.7-73.7); Nucleated Red Blood Cells % 0.1 % (0-0); Platelets 301 thou/uL (152-406); RBC Red Blood Cell Count 4.56 M/uL (4.33-5.43); Red Cell Distribution Width 14.8 % (12.1-15.2)
[2024-12-27 05:38] LABS: Anion Gap 9.1 mEq/L (5.0-15.0); Magnesium 2.1 mg/dL (1.6-2.4); Phosphorus 3.2 mg/dL (2.5-4.9); Potassium 4.1 mEq/L (3.5-5.1)
--- NOTE | 2024-12-27 15:00 | CON ---
Date of Consultation: 12/25/2024 Brief History Of Present Illness: The patient is a 44-year-old male, known to me from previous encou nters. He has a history significant for a ventral hernia repair with mesh 8 years ago at an outside facility in [place], [place]. He had the hernia repair at that point and ultimately developed recurrenc e of the hernia that got progressively worse over several years. I have met the patient for hernia r epair. He ultimately was taken to the operating room for an attempted laparoscopic ventral hernia re pair with mesh. However, on that particular occasion, he had significant adhesions between the herni a mesh and his small bowel requiring a small bowel resection and removal of the affected mesh. At th is point, he had a primary anastomosis and had primary abdominal closure without mesh repair. He had a primary abdominal wall closure. He did well after that surgery and ultimately left the hospital. He continued to have some weight gain after leaving the hospital over the course of time and ultimat margaret he came to my clinic to discuss the recurrent ventral incisional hernia, which he developed. I r ecommended we proceed with a laparoscopic ventral hernia repair. He agreed, however, the logistics o f life he states gotten away with a recent closing on a house and he was concerned about the financia l aspect of it and as such, he could not proceed on the timeline we had projected. He subsequently d eveloped abdominal pain, nausea, vomiting, and decreased bowel function beginning the day before admi ssion and had felt sick 2-3 days before that. When he was admitted to the hospital, he had evidence of bowel obstruction and now presents for the above issue. The bowel obstruction was likely due to t he ventral incisional hernia. Past Medical History: Includes obesity, umbilical hernia from a medical standpoint. Surgical History: Include, 1. Umbilical hernia repair with mesh. 2. Small bowel resection as described above. Allergies: FLAGYL AND RELAFEN. Home Medications: Included, Mounjaro which he just recently started. Family History: Significant for diabetes in the mother and father. Social History: He drinks alcohol socially. Denies recreational drug use. Review of Systems: Ten-point review of systems other than HPI, denies. Physical Examination: General: He is awake, alert, oriented. Psychiatric: Appropriate, conversive. HEENT: Normocephalic. Sclerae icteric. Mucous membranes are moist. Oropharynx clear. Neck: Supple. No JVD. Chest: Has normal expansion and excursion. Cardiovascular: Regular rate and rhythm. Pulmonary: Clear to auscultation bilaterally. Abdomen: Soft with well-healed surgical scars and I feel what feels like an incarcerated hernia. It was reduced, however, by the ER staff successfully with significant symptomatic improvement, but not complete resolution. I still feel multiple ventral incisional hernias similar to previous examinati on. I do not feel obvious strangulated bowel. The bowel is partially reducible at this point. Extremities: No clubbing, cyanosis, edema. Skin: Warm and dry. Laboratory Data: Revealed a white blood cell count of 8.8, hemoglobin was 14.1, hematocrit 39.9, stephanie telet count was 306. His sodium 139, potassium 3.3, chloride 108, carbon dioxide 26, BUN 9, creatini ne 0.6, glucose was 113. He had imaging performed, which included a CT of the abdomen and pelvis, wh ich was officially read as small bowel obstruction secondary to a possible [place] type small bowel c ontaining supraumbilical hernia. Multiple ventral hernias are noted containing bowel, but only the 1 has a bowel obstruction and inflammation. Assessment And Plan: This is a 44-year-old male known to me from previous above interactions, who pr esents with a small bowel obstruction, likely due to ventral hernia. 1. IV fluid hydration. 2. N.p.o. status. 3. Serial abdominal exams. 4. If the patient does not significantly improve, we have discussed the possibility of laparoscopic p ossible open repair and adhesiolysis, possible small bowel resection and possible repair of his ventr al incisional hernia. If no bowel resection or bowel surgery is required other than adhesiolysis, I have explained the risks, benefits, and alternatives including, but not limited to bleeding, infectio n, damage to surrounding tissues, need for further operation procedures, need for small bowel resecti on, need for possible other intestinal surgery, blood clots, heart attack, strokes, or other procedur e complications in the perioperative period. The patient displayed understanding of above stated stephanie n and agrees to proceed as indicated. Thank you for this interesting consult. YONI/JEAN MARIE Voice ID: [id number] Report ID: [id number]
--- NOTE | 2024-12-27 15:14 | P.PN ---
Date of Service: 12/27/24 Subjective Resting in bed. NG tube draining. LYRIC drain in place. at bedside. His pain is controlled Review of systems 10 point review of systems otherwise negative Physical Examination - Vital Signs Temperature: 98 F Blood Pressure: 136/66 Pulse: 90 Respirations: 18 Pulse Ox (%): 93 Objective: General appearance: Alert and comfortable CVS: Normal S1 and S2 Lungs: Clear to auscultation bilaterally Abdomen: Soft, sluggish bowel sounds present, mild tenderness present in mid abdomen Extremities: No lower extremity edema Assessment And Plan - Plan 1. Small bowel obstruction, Hernia: s/p laparoscopic small bowel resection with lysis of adhesion by Dr Gonzalez 2. Leukocytosis: Likely reactive to surgery. Continue to follow. Currently on Zosyn. Obtain procalcitonin and CRP 3. Obstructive sleep apnea, Obesity: consider weight loss, f/u with PCP 4. Prediabetes / obesity: Counseled on weight loss plan d/w patient and family, d/w Dr. Gonzalez DVT prophylaxis with Lovenox
[2024-12-28 05:49] LABS: Absolute Basophils 0.1 K/uL (0-0.5); Absolute Eosinophils 0.7 K/uL (0-0.5); Absolute Lymphocytes (CBC) 2.3 K/uL (0.7-4.9); Absolute Monocytes 0.9 K/uL (0.1-1.3); Absolute Neutrophil 6.6 K/uL (1.8-8.0); Basophils % 0.6 % (0-1.3); Hematocrit 38.9 % (39.6-49.0); Hemoglobin 13.5 g/dL (13.6-17.9); Lymphocytes % 21.5 % (15.3-44.8); MCH 29.8 pg (27.0-35.0); MCHC 34.6 g/dL (32.0-36.0); MPV 7.9 fL (7.6-11.3); Monocytes % 8.3 % (3.3-12.3); Neutrophils % 62.6 % (41.7-73.7); Platelets 290 thou/uL (152-406); RBC Red Blood Cell Count 4.52 M/uL (4.33-5.43); Red Cell Distribution Width 14.8 % (12.1-15.2)
[2024-12-28 05:59] LABS: Anion Gap 8.3 mEq/L (5.0-15.0); Potassium 3.3 mEq/L (3.5-5.1)
[2024-12-28] MEDS: KCL 20 MEQ/100 mL IVPB 20 MEQ/100 ML BAG IV SCH (07:53)
[2024-12-28] MEDS: CALCIUM GLUCONATE 1 GM IVPB 1 GM/50 ML BAG IV ONE (10:08)
--- NOTE | 2024-12-28 11:04 | P.PN ---
Subjective Date of Service: 12/27/24 Chief Complaint: Small bowel obstruction Subjective: Improving States he feels significantly better, has been passing gas. Physical Examination - Vital Signs Temperature: 97.4 F Blood Pressure: 143/92 Pulse: 92 Respirations: 18 Pulse Ox (%): 96 - Physical Exam General: Alert, In no apparent distress, Cooperative Respiratory: Clear to auscultation bilaterally, Normal air movement Cardiovascular: Regular rate/rhythm Gastrointestinal: Other (Soft, mild appropriate tenderness to palpation, no rebound no guarding no focal peritonitis, LYRIC drain is serosanguineous. Hernias remain palpable. [place] in place) Neurological: Normal speech Assessment And Plan - Current Problems (Diagnosis) (1) Small bowel obstruction Current Visit: Yes Status: Acute Plan: Patient is a 44-year-old male status post exploratory laparoscopy converted to exploratory laparotomy small bowel enterotomy repair and extensive adhesiolysis -Gen: Pain well-controlled with current regimen, DC NG tube after clamp trial if successfully completed and start clear liquid diet. - CVS: Hemodynamically stable. - Pulmonary: Incentive spirometry, cough and deep breathing - GI: Serial abdominal exams, monitor drain output, await bowel function, abdo josy binder to be worn except when in shower. - FEN: Continue IV fluid hydration until p.o. transition, electrolyte replacement protocol, nutrition: Anticipate DC NG tube and start clear liquid diet. - ID: Continue prophylactic antibiotics anticipate DC soon. - Prophylaxis: SCDs Lovenox ambulate with assist. - Okay to transfer to floor
--- NOTE | 2024-12-28 17:01 | P.PN ---
Date of Service: 12/28/24 Subjective Resting in bed. NG tube removed. Passing gas. Abdominal pain improved. Discussed with Dr. Gonzalez at bedside. His pain is controlled Review of systems 10 point review of systems otherwise negative Physical Examination - Vital Signs Temperature: 98 F Blood Pressure: 136/66 Pulse: 90 Respirations: 18 Pulse Ox (%): 93 Objective: General appearance: Alert and comfortable CVS: Normal S1 and S2 Lungs: Clear to auscultation bilaterally Abdomen: Soft, sluggish bowel sounds present, mild tenderness present in mid abdomen Extremities: No lower extremity edema Assessment And Plan - Plan 1. Small bowel obstruction, Hernia: s/p laparoscopic small bowel resection with lysis of adhesion by Dr Gonzalez. NG tube clamp. Start clear liquid and advance diet as tolerated 2. Leukocytosis: Resolved. Continue to follow. Currently on Zosyn. Procalcitonin within normal limit 3. Obstructive sleep apnea, Obesity: consider weight loss, f/u with PCP 4. Prediabetes / obesity: Counseled on weight loss 5. Hypokalemia: Replace potassium Transfer to floor DVT prophylaxis with Lovenox
[2024-12-29 05:49] LABS: Absolute Basophils 0.1 K/uL (0-0.5); Absolute Eosinophils 1.1 K/uL (0-0.5); Absolute Lymphocytes (CBC) 2.1 K/uL (0.7-4.9); Absolute Monocytes 0.6 K/uL (0.1-1.3); Absolute Neutrophil 5.6 K/uL (1.8-8.0); Basophils % 0.7 % (0-1.3); Eosinophils % 11.9 % (0-4.4); Hematocrit 38.7 % (39.6-49.0); Hemoglobin 13.6 g/dL (13.6-17.9); Lymphocytes % 21.8 % (15.3-44.8); MCH 29.8 pg (27.0-35.0); MPV 7.8 fL (7.6-11.3); Neutrophils % 59.6 % (41.7-73.7); Nucleated Red Blood Cells % 0.1 % (0-0); Platelets 300 thou/uL (152-406); RBC Red Blood Cell Count 4.55 M/uL (4.33-5.43); Red Cell Distribution Width 14.7 % (12.1-15.2)
[2024-12-29 06:02] LABS: Anion Gap 9.6 mEq/L (5.0-15.0); Potassium 3.6 mEq/L (3.5-5.1)
[2024-12-29] MEDS: POTASSIUM CL SA 10 MEQ TAB PO ONE (08:45)
[2024-12-29 08:55] VITALS: BP 121/72; TEMP 97.8
[2024-12-29 08:58] VITALS: O2SAT 97
--- NOTE | 2024-12-29 12:07 | P.PN ---
Subjective Date of Service: 12/29/24 Chief Complaint: Small bowel obstruction Subjective: No chest pain or shortness of breath. No nausea or vomiting. abdominal pain better. No obvious bleeding. Looks comfortable in the bed. had BM today Objective: General appearance: Alert and comfortable CVS: Normal S1 and S2 Lungs: Clear to auscultation bilaterally Abdomen: Soft, abd binder present, no tenderness Extremities: No lower extremity edema Physical Examination - Vital Signs Temperature: 97.8 F Blood Pressure: 121/72 Pulse: 72 Respirations: 20 Pulse Ox (%): 95 Assessment And Plan - Plan 1. Small bowel obstruction, Hernia: s/p laparoscopic small bowel resection with lysis of adhesion by Dr Gonzalez. - Start clear liquid and advance diet as tolerated (on full liquids today) 2. Leukocytosis: Resolved. Improved, Continue to follow. Currently on Zosyn. 3. Obstructive sleep apnea, Obesity: consider weight loss, f/u with PCP 4. Prediabetes / obesity: Counseled on weight loss 5. Hypokalemia: Replaced plan d/w patient and nursing staff. Discharge plan depending on clinical progress.
--- NOTE | 2024-12-31 14:18 | P.DS ---
Admission Date: 12/24/24 Discharge Date: 12/31/24 Disposition: DC HOME/HOME HEALTH CARE Discharge Condition: GOOD Reason for Admission: Small bowel obstruction Hospital Course: Discharge diagnosis: 1. Small bowel obstruction, Hernia: s/p surgery by Dr Gonzalez. - Started clear liquid and advanced diet to full liquids 2. Leukocytosis: Resolved. Improved, given IV antibiotics 3. Obstructive sleep apnea, Obesity: consider weight loss, f/u with PCP 4. Prediabetes / obesity: Counseled on weight loss 5. Hypokalemia: Replaced plan d/w patient and nursing staff. Hospital course: 44-year-old patient admitted with small bowel obstruction, he had surgery, postoperatively he was closely monitored in the ICU, started on clear liquid diet and advance to full liquids, we were going to transfer him out of ICU and advance diet and discharge, looks like nursing staff misunderstood about transfer to floor, they discharged the patient to go home. He will follow-up with the PCP and surgical clinic. As per Dr. Gonzalez he does not need any more antibiotics. Vital Signs/Physical Exam: Temp Pulse Resp BP Pulse Ox 97.8 F 72 20 121/72 95 12/29/24 12:07 12/29/24 12:07 12/29/24 12:07 12/29/24 12:07 12/29/24 12:07 Laboratory Data at Discharge: WBC 9.50 thou/uL (4.3-10.9) 12/29/24 05:11 Hgb 13.6 g/dL (13.6-17.9) 12/29/24 05:11 Hct 38.7 % (39.6-49.0) L 12/29/24 05:11 Plt Count 300 thou/uL (152-406) 12/29/24 05:11 PT 12.2 SECONDS (10-13.0) 12/25/24 05:26 INR 1.07 12/25/24 05:26 APTT 26.5 SECONDS (27.2-37.4) L 12/25/24 05:26 Sodium 141 mEq/L (136-145) 12/29/24 05:11 Potassium 3.6 mEq/L (3.5-5.1) 12/29/24 05:11 BUN 8 mg/dL (7-18) 12/29/24 05:11 Creatinine 0.62 mg/dL (0.70-1.30) L 12/29/24 05:11 Glucose 110 mg/dL (74-106) H 12/29/24 05:11 Phosphorus 3.2 mg/dL (2.5-4.9) 12/27/24 04:49 Magnesium 2.1 mg/dL (1.6-2.4) 12/27/24 04:49 Total Bilirubin 0.4 mg/dL (0.2-1.0) 12/25/24 05:26 AST 13 U/L (15-37) L 12/25/24 05:26 ALT 38 U/L (16-61) 12/25/24 05:26 Alkaline Phosphatase 94 U/L (45-117) 12/25/24 05:26 Lipase 26 U/L (13-75) 12/24/24 21:38 Home Medications: Hydrocodone 5/APAP 325 [Prichard 5/325] 1 tab PO Q6H PRN 7 Days #30 tab 05/19/24 Tirzepatide [Mounjaro] 2.5 mg SQ EVERY 7TH DAY 12/25/24 Followup: Clive Brown MD [Primary Care Provider] -
== END 2024-12-29 13:24 | disposition home health service (06) | DRG 330 ==
LOC: ER 20:50 → ERHOLD 23:32 → 4TH 12-25 08:44 → 3RD-ICU 12-26 17:02
PROVIDERS: ADMIT Family Medicine; ATTEND Hospitalist
PROC: 0DNW0ZZ Release Peritoneum, Open Approach (ICD-10-PCS; 2024-12-26)
PROC: 0WUF0JZ Supplement Abdominal Wall with Synthetic Substitute, Open Approach (ICD-10-PCS; 2024-12-26)
PROC: 0DH67UZ Insertion of Feeding Device into Stomach, Via Natural or Artificial Opening (ICD-10-PCS; 2024-12-26)
PROC: 0DQ80ZZ Repair Small Intestine, Open Approach (ICD-10-PCS; principal; 2024-12-26 15:00)
DX: K43.6 Other and unspecified ventral hernia with obstruction, without gangrene (principal); Z68.41 Body mass index [BMI] 40.0-44.9, adult; E66.9 Obesity, unspecified; E87.6 Hypokalemia; G47.33 Obstructive sleep apnea (adult) (pediatric); R73.03 Prediabetes; Z88.8 Allergy status to other drugs, medicaments and biological substances; Z90.49 Acquired absence of other specified parts of digestive tract; Z53.31 Laparoscopic surgical procedure converted to open procedure
CPT/HCPCS: 36415; 74018; 74177; 80048; 80053; 82947; 83036; 83690; 83735; 84100; 84145; 85025; 85610; 85730; 86140; 94010; 96361; 96365; 96375; 97161; 99285; A4216; J0612; J1100; J1171; J1650; J2003; J2250; J2270; J2371; J2405; J2543; J2704; J2710; J3010; J3480; J7030; Q9967